=== PATIENT | female | born 1990 | race Caucasian/White ===

== ENCOUNTER 2018-07-08 16:47 | Emergency (ER) | payer SELFPAY ==
[~2018-07-08] VITALS: Ht 154.9 cm; Wt 65.8 kg
[~2018-07-08 16:47] MED LIST: HYDR-3720 PO
--- OUTSIDE RECORDS SUMMARY | 2018-07-08 17:11 | XMS REPORT | Continuity of Care Document ---
Author Author [facility] Organization [facility] Address Unknown Phone Unavailable Allergies There is no data. Medications There is no data. Problems There is no data. Procedures There is no data. Results There is no data. Encounters ACCT No. Visit Date/Time Discharge Status Pt. Type Provider Facility Loc./Unit Complaint [id number] 01/23/2014 09:11:00 01/23/2014 15:00:00 DIS Outpatient [id number] 01/17/2014 16:50:00 01/17/2014 23:59:59 CLS Outpatient
[2018-07-08] MEDS ORDERED: HYDROcodone/APAP 7.5 MG/325 MG (LORTAB, LORCET PLUS) TABLET PO ONE (18:30)
--- NOTE | 2018-07-08 18:34 | ED Lower Extremity ---
General Chief Complaint: Lower Extremity Stated Complaint: L LEG/KNEE INJ Nursing Triage Note: ARRIVED VIA WC TO ROOM 07. 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 UNABLE TO BEAR WT OR MOVE KNEE WITHOUT SEVERE PAIN. Nursing Sepsis Screen: No Definite Risk Source: patient, family (mother) Exam Limitations: no limitations History of Present Illness Date Seen by Provider: Jul 08, 2018 Time Seen by Provider: 18:00 Initial Comments Patient is a 28-year-old female who presents to the emergency room with complaints of left knee pain. She reports that she was bending down to talk to a child when she went to stand up and she felt a sharp pain in the posterior area of the knee. She describes the pain as "like something twisting to the point where it tears". She is unable to bear weight or move the knee without pain. Onset: this evening Pain/Injury Location: left knee Modifying Factors: Worse With Movement Allergies and Home Medications Allergies Coded Allergies: No Known Drug Allergies (Unverified , 01/23/14) Home Medications Hydrocodone Bit/Acetaminophen 1 Each Tablet, 1-2 TAB PO Q3H PRN for PAIN Prescribed by: MARLEN GRIFFITHS on 01/23/14 1423 Hydrocodone Bit/Acetaminophen 1 Tab Tab, 1 EACH PO Q4-6HR PRN for PAIN-MODERATE Prescribed by: JEFFREY DE LA CRUZ on 07/08/18 1918 Patient Home Medication List Home Medication List Reviewed: Yes Review of Systems Constitutional: no symptoms reported, see HPI Musculoskeletal: see HPI, joint pain (left knee pain) All Other Systems Reviewed Negative Unless Noted: Yes Past Kkktoyk-Dkmhra-Vhpvqi Hx Past Med/Social Hx: Reviewed Nursing Past Med/Soc Hx Patient Social History Alcohol Use: Denies Use Recreational Drug Use: No Smoking Status: Never a Smoker Recent Foreign Travel: No Contact w/Someone Who Travel: No Recent Infectious Disease Expo: No Past Medical History Surgeries: Yes (D&C) Respiratory: No Cardiac: No Neurological: No : No Reproductive Disorders: Yes (BLIGHTED OVUM) Sexually Transmitted Disease: No Gastrointestinal: No Musculoskeletal: No Endocrine: No Integumentary: No Blood Disorders: No Family Medical History Reviewed Nursing Family Hx Physical Exam Vital Signs Vital Signs - First Documented 07/08/18 18:09 Temp 98.9 Pulse 103 Resp 16 B/P (MAP) 148/99 (115) Pulse Ox 99 O2 Delivery Room Air Capillary Refill : Less Than 3 Seconds Height, Weight, BMI Height: 5'1.00" Weight: 145lbs. oz. 65.502325rs; BMI Method:Stated General Appearance: WD/WN, no apparent distress Cardiovascular: normal peripheral pulses, regular rate, rhythm, no edema, no gallop, no JVD, no murmur Respiratory: chest non-tender, lungs clear, normal breath sounds, no respiratory distress, no accessory muscle use Knees: right knee non-tender, right knee normal inspection; left knee normal range of motion (pain with ROM ); right knee no evidence of injury; left knee pain, left knee soft tissue tenderness Neurologic/Tendon: normal sensation, normal motor functions, normal tendon functions, responds to pain, no evidence tendon injury Neurologic/Psychiatric: alert, normal mood/affect, oriented x 3 Skin: normal color, warm/dry normal distal pulses and capillary refill Progress/Results/Core Measures Results/Orders My Orders Orders - JEFFREY DE LA CRUZ Knee, Left, 3 Views (07/08/18 18:14) Hydrocodone/Apap 7.5/325 Tab (Lortab 7. (07/08/18 18:30) Rx-Hydrocodone/Apap 5-325 Mg (Rx-Vicodin (07/08/18 19:45) Medications Given in ED Vital Signs/I&O 18 1218 18:09 19:56 Temp 98.9 98.9 Pulse 103 93 Resp 16 16 B/P (MAP) 148/99 (115) 121/76 (91) Pulse Ox 99 99 O2 Delivery Room Air Room Air Blood Pressure Mean: 115 Progress Progress Note : Time: 19:16 Progress Note I have seen and evaluated the patient. I have informed her imaging studies. She agrees with plan of care. Return precautions were given. See discharge note. Diagnostic Imaging Diagonstic Imaging: Xray Plain Films/CT/US/NM/MRI: knee Comments NAME: ARACELI HILL [facility] REC#: [id number] PHYSICIAN: JEFFREY DE LA CRUZ [facility] CC: JEFFREY DE LA CRUZ; LAUREN GUTIERREZ MD Page 1 of 1 RADIOLOGY REPORT VIA [facility], [facility]. [place], [place] CC: JEFFREY DE LA CRUZ; LAUREN GUTIERREZ MD Page 1 of 1 RADIOLOGY REPORT NAME: ARACELI HILL [facility] REC#: [id number] PT STATUS: REG ER : 1990 PHYSICIAN: JEFFREY DE LA CRUZ ADMIT DATE: 07/08/18/ER Signed Date of Exam: 07/08/18 KNEE, LEFT, 3 VIEWS INDICATION: Left knee pain. EXAMINATION: AP, oblique and lateral views of the left knee were obtained. FINDINGS: No fracture or acute bony abnormality is seen. Joint spaces are unremarkable. There is no overt joint effusion. IMPRESSION: Negative left knee. Dictated by: Dictated on workstation # [id number] Dict: 07/08/181848 Trans: 07/08/181958 Interpreted by: LAUREN GUTIERREZ MD Electronically signed by: LAUREN GUTIERREZ MD 07/08/181958 Reviewed: Reviewed by Me Departure Impression Primary Impression: Knee pain Qualified Codes: M25.562 - Pain in left knee Disposition: HOME, SELF-CARE Condition: Stable/Unchanged Departure-Patient Inst. Decision time for Depature: 19:16 Referrals: WINIFRED SCHUMACHER,LOCAL PHYSICIAN (PCP) Primary Care Physician ROSA RICCI MD Patient Instructions: Knee Pain Add. Discharge Instructions: Take medication as directed. You may use additional ibuprofen and Tylenol as needed for pain relief. Ice to the sore areas at 20 minute intervals. Wear the knee immobilizer at all times and use the crutches to ambulate. Follow-up with [facility] or to food within 1 week for recheck. Call first thing Tuesday morning for an appointment time. Return back to the emergency room for any worsening symptoms or concerns as needed. All discharge instructions reviewed with patient and/or family. Voiced understanding. Scripts Hydrocodone Bit/Acetaminophen (Hydrocodone/Acetaminophen 5/325mg Tablet) 1 Tab Tab 1 EACH PO Q4-6HR PRN for PAIN-MODERATE MDD 10, #14 TAB Prov: JEFFREY DE LA CRUZ 07/08/18 JEFFREY DE LA CRUZ Jul 08, 2018 18:34
--- NOTE | 2018-07-08 18:51 | Diagnostic Imaging Report ---
INDICATION: Left knee pain. EXAMINATION: AP, oblique and lateral views of the left knee were obtained. FINDINGS: No fracture or acute bony abnormality is seen. Joint spaces are unremarkable. There is no overt joint effusion. IMPRESSION: Negative left knee. Dictated by: Dictated on workstation # [id number]
[2018-07-08] MEDS ORDERED: ACHD5005 PO (19:18)
[2018-07-08] MEDS ORDERED: RX-HYDROCODONE/APAP 5/325 MG #4 TAB PK PO PRN (19:45)
[2018-07-08 19:56] VITALS: BP 121/76
== END 2018-07-08 19:56 | disposition home or self-care (01) ==
LOC: EDUNIT# 16:47 → ER 16:48
DX: M25.562 Pain in left knee (principal); Z98.890 Other specified postprocedural states; X50.1XXA Overexertion from prolonged static or awkward postures, initial encounter
CPT/HCPCS: 73562

== ENCOUNTER → 2018-07-12 | Outpatient (CLI) | payer OTHER ==
[~2018-07-12] MED LIST changes: +ACHD5005 PO
--- NOTE | 2018-07-12 14:20 | Diagnostic Imaging Report ---
PROCEDURE: MRI left joint lower extremity without contrast. TECHNIQUE: Multiplanar, multisequence non contrast-enhanced MRI of the left lower extremity was accomplished. INDICATION: Injury on 07/08/2018, with posterior and lateral left knee pain and swelling and instability. COMPARISON: Radiographs from 07/08/2018. FINDINGS: No acute fracture or dislocation is seen in the left knee. Alignment appears normal. There is a moderate left knee joint effusion. The articular cartilage in the patellofemoral compartment appears intact. No full-thickness defects are seen in the articular cartilage of the medial and lateral compartments as well. The medial meniscus is intact. There is a bucket-handle tear of the lateral meniscus with the posterior horn and body flipped anteriorly. The anterior and posterior cruciate ligaments are intact. The medial collateral ligament is intact. There is edema about the fibular collateral ligament proper, which may be reactive to the meniscal tear although a low-grade sprain is not excluded. The remainder of the lateral collateral ligamentous complex appears normal. The extensor mechanism is intact. The medial and lateral retinacula appear intact. There is moderate deep soft tissue edema posteriorly and laterally. Soft tissues are otherwise unremarkable. IMPRESSION: 1. Bucket-handle tear of the left knee lateral meniscus with the posterior horn and body flipped anteriorly. 2. Edema about the fibular collateral ligament may be due to low-grade sprain or reactive to the meniscal injury. 3. Moderate left knee joint effusion. Dictated by: Dictated on workstation # [id number]
== END ==
LOC: RAD 12:19
PROVIDERS: ATTEND Nurse Practitioner Primary Care
DX: S83.252A Bucket-handle tear of lateral meniscus, current injury, left knee, initial encounter (principal)
CPT/HCPCS: 73721

== ENCOUNTER → 2019-07-10 | Outpatient (CLI) | payer MEDICAID ==
[~2019-07-10] MED LIST changes: +CETI10CA PO; +DOCU100C37 PO; +IBUP-1780 PO; +OXYC1TAB87 PO; +PNV11TAB5 PO
== END ==
LOC: LABNPT 16:15
PROVIDERS: ATTEND Obstetrics & Gynecology
DX: O28.8 Other abnormal findings on antenatal screening of mother (principal); Z3A.00 Weeks of gestation of pregnancy not specified
CPT/HCPCS: 82570; 84156

== ENCOUNTER 2019-07-17 17:37 | Inpatient (IN) | payer MEDICAID ==
[~2019-07-17] VITALS: Ht 157.5 cm; Wt 83.8 kg
[~2019-07-17 17:37] MED LIST changes: -CETI10CA PO; -PNV11TAB5 PO
[2019-07-17 17:50] VITALS: BP 140/88
[2019-07-17] MEDS ORDERED: FAMOTIDINE 20 MG (PEPCID) TABLET PO PRN (18:15)
[2019-07-17] MEDS ORDERED: CALCIUM CARBONATE 500 MG (TUMS) TAB.CHEW PO PRN (18:15)
--- NOTE | 2019-07-17 18:22 | History & Physical ---
History and Physical Date Seen by Provider: Jul 17, 2019 Time Seen by Provider: 18:17 This patient is a 29-year-old A1 white female early at 35-6/7 weeks gestation admitted for preeclampsia. Seen in my clinic on this date found to have a urine protein urine protein creatinine ratio was returned was over 0.4 she also has demonstrated progressive anasarca, she is hyperreflexic with 2 beats of clonus, does deny headaches or nausea or vomiting. She denies Rupture membranes or bleeding. She denies contractions. A GBS culture was obtained in my clinic on this date Allergies are none Medications are vitamins Medical social and surgical histories are per the antepartum record HEENT exam is normal Neck is supple no lymphadenopathy no thyromegaly Abdomen is gravid soft nontender nondistended Extremities show no clubbing or cyanosis. There is no Homans sign. DTRs are 3+ to 4 over 4 globally Pelvic exam in my clinic showed a cervix 2 cm dilated 5070 percent effaced -1 to -2 station vertex presentation with a soft midplane cx Lab work obtained in my clinic showed a normal platelet count and normal LDH was normal uric acid normal liver enzymes normal hemoglobin Assessment and plan 35-6/7 weeks' gestation with preeclampsia. She will be monitored and managed inpatient until she obtains 37 weeks gestation at which time we would effect delivery likely through induction of labor or likelihood and risk for a delivery as elevated due to the fact that she has preeclampsia. 35-6/7 weeks' gestation with preeclampsia Allergies and Home Medications Allergies Coded Allergies: No Known Drug Allergies (Unverified , 01/23/14) Home Medications Hydrocodone Bit/Acetaminophen 1 Each Tablet, 1-2 TAB PO Q3H PRN for PAIN Prescribed by: MARLEN GRIFFITHS on 01/23/14 1423 Hydrocodone Bit/Acetaminophen 1 Tab Tab, 1 EACH PO Q4-6HR PRN for PAIN-MODERATE Prescribed by: JEFFREY DE LA CRUZ on 07/08/18 1918 Patient Home Medication List Home Medication List Reviewed: Yes MARLEN MEZA MD Jul 17, 2019 18:22 POS
[2019-07-17] MEDS ORDERED: D5 LR IV SOLUTION 1,000 ML IV ONE (18:36)
[2019-07-17] MEDS: D5 LR IV SOLUTION 1,000 ML IV SCH (18:44)
[2019-07-17] MEDS ORDERED: ACETAMINOPHEN 500 MG TAB (TYLENOL) PO PRN (18:45)
[2019-07-17 18:53] VITALS: BP 140/88
[2019-07-17 19:00] VITALS: BP 126/79
[2019-07-17] MEDS ORDERED: PNV11TAB5 PO (19:26)
[2019-07-17] MEDS ORDERED: CETI10CA PO (19:26)
[2019-07-17 21:00] VITALS: BP 128/80
[2019-07-18] VITALS (8 sets, daily range): BP systolic 102–128; BP diastolic 64–85
--- NOTE | 2019-07-18 07:42 | Progress Note ---
Standard Progress Note Progress Notes/Assess & Plan Date Seen by a Provider: Jul 18, 2019 Time Seen by a Provider: 07:39 Progress/Assessment & Plan Patient is without complaint. She denies rupture membranes or bleeding. She denies headache. Patient does feel baby moving and has occasional contractions and pressure. Vital Signs Date Time Temp Pulse Resp B/P (MAP) Pulse Ox O2 Delivery O2 Flow Rate FiO2 07/18/19 06:13 36.2 92 18 128/85 (99) Room Air 07/18/19 00:59 36.8 85 18 102/64 (77) 99 07/17/19 21:00 37.1 101 18 128/80 (96) 100 Room Air 07/17/19 19:00 90 18 126/79 (95) Room Air 07/17/19 18:53 37.2 101 18 98 Room Air 07/17/19 17:50 37.2 101 18 140/88 (105) 98 Room Air Blood pressures are somewhat labile but decreased when she is at bed rest The abdomen is gravid soft nontender nondistended Extremities show no clubbing cyanosis. There is no Homans sign. Assessment and plan hospital day 2 at 35 and 6/7 weeks' gestation with preeclampsia. Plan is for inpatient monitoring with delivery for development of severe preeclampsia or at the attainment of 37 weeks gestation whichever comes first. Ob ultrasound is pending today MARLEN MEAZ MD Jul 18, 2019 07:42 POS
--- NOTE | 2019-07-18 09:18 | Diagnostic Imaging Report ---
INDICATION: Preeclampsia. TECHNIQUE: Multiple real-time grayscale images were obtained over the gravid uterus. COMPARISON: None. FINDINGS: There is a single living intrauterine in cephalic presentation. Placenta is fundal. No previa. Biopsy correlation for gestational age of 37 weeks 3 days. There is normal volume of amniotic fluid. Heart rate is 147 bpm and regular. Biometrical measurements are as follows: Biparietal 9.37 cm, age 38 weeks 1 days. Head circumference 33.79 cm, age 38 weeks 6 days. Abdominal circumference 32.46 cm, age 36 weeks 3 days. Femur length 6.99 cm, age 35 weeks 6 days. Sonographic estimate age: 37 weeks 3 days. Sonographic estimated date of delivery: 08/05/19. Estimated Weight: 3007 gm (+/- 439 gm). LMP percentile: 70%. heart rate: 147 beats per minute. number: 1 of 1. IMPRESSION: Single living intrauterine with sonographically estimated gestational age of 37 weeks 3 days and estimated date of confinement is August 05, 2019. Dictated by: Dictated on workstation # [id number]
[2019-07-18] MEDS: D5 LR IV SOLUTION 1,000 ML IV SCH (12:53)
[2019-07-19] VITALS (8 sets, daily range): BP systolic 123–136; BP diastolic 60–87
--- NOTE | 2019-07-19 07:46 | Progress Note ---
Standard Progress Note Progress Notes/Assess & Plan Date Seen by a Provider: Jul 19, 2019 Time Seen by a Provider: 07:44 Progress/Assessment & Plan Patient is without complaint. She denies rupture membranes or bleeding. She denies headache. Patient does feel baby moving and has occasional contractions and pressure. Vital Signs Date Time Temp Pulse Resp B/P (MAP) Pulse Ox O2 Delivery O2 Flow Rate FiO2 07/18/19 06:13 36.2 92 18 128/85 (99) Room Air 07/18/19 00:59 36.8 85 18 102/64 (77) 99 07/17/19 21:00 37.1 101 18 128/80 (96) 100 Room Air 07/17/19 19:00 90 18 126/79 (95) Room Air 07/17/19 18:53 37.2 101 18 98 Room Air 07/17/19 17:50 37.2 101 18 140/88 (105) 98 Room Air Blood pressures are somewhat labile but decreased when she is at bed rest The abdomen is gravid soft nontender nondistended Extremities show no clubbing cyanosis. There is no Homans sign. Assessment and plan hospital day 2 at 35 and 6/7 weeks' gestation with preeclampsia. Plan is for inpatient monitoring with delivery for development of severe preeclampsia or at the attainment of 37 weeks gestation whichever comes first. Ob ultrasound is pending today July 19, 2019 Patient is without complaint. She is ambulating, voiding, tolerating oral intake Vital Signs Date Time Temp Pulse Resp B/P (MAP) Pulse Ox O2 Delivery O2 Flow Rate FiO2 07/19/19 04:40 36.9 89 16 126/60 (82) 97 07/19/19 00:36 89 18 136/87 07/19/19 00:36 37.0 96 18 136/87 (103) 100 Room Air 07/18/19 20:30 36.6 98 18 123/72 (89) 100 Room Air 07/18/19 16:30 36.7 85 18 115/70 (85) 100 Room Air 07/18/19 14:19 89 18 122/72 07/18/19 14:17 89 18 122/72 (89) 98 Room Air 07/18/19 12:00 36.6 80 18 126/84 (98) 100 Room Air 07/18/19 08:00 37.0 98 18 128/72 (90) 98 Room Air I & O 07/19/19 07:00 Intake Total 1000 ml Balance 1000 ml Vital signs are stable. Patient is afebrile. Blood pressures are acceptable. The abdomen is gravid soft and nontender Extremities show no clubbing or cyanosis Pelvic exam is deferred Assessment and plan hospital day 2 now at 36 weeks gestation with preeclampsia - to continue observation with blood pressure monitoring until 37 weeks gestation and then effect delivery MARLEN MEZA MD Jul 19, 2019 07:46 POS
[2019-07-19] MEDS: D5 LR IV SOLUTION 1,000 ML IV SCH (09:02)
[2019-07-20] VITALS (8 sets, daily range): BP systolic 114–127; BP diastolic 56–81
[2019-07-20] MEDS: D5 LR IV SOLUTION 1,000 ML IV SCH ×2 (03:59→23:07)
--- NOTE | 2019-07-20 08:01 | Progress Note ---
Standard Progress Note Progress Notes/Assess & Plan Date Seen by a Provider: Jul 20, 2019 Time Seen by a Provider: 07:59 Progress/Assessment & Plan Patient is without complaint. She denies rupture membranes or bleeding. She denies headache. Patient does feel baby moving and has occasional contractions and pressure. Vital Signs Date Time Temp Pulse Resp B/P (MAP) Pulse Ox O2 Delivery O2 Flow Rate FiO2 07/18/19 06:13 36.2 92 18 128/85 (99) Room Air 07/18/19 00:59 36.8 85 18 102/64 (77) 99 07/17/19 21:00 37.1 101 18 128/80 (96) 100 Room Air 07/17/19 19:00 90 18 126/79 (95) Room Air 07/17/19 18:53 37.2 101 18 98 Room Air 07/17/19 17:50 37.2 101 18 140/88 (105) 98 Room Air Blood pressures are somewhat labile but decreased when she is at bed rest The abdomen is gravid soft nontender nondistended Extremities show no clubbing cyanosis. There is no Homans sign. Assessment and plan hospital day 2 at 35 and 6/7 weeks' gestation with preeclampsia. Plan is for inpatient monitoring with delivery for development of severe preeclampsia or at the attainment of 37 weeks gestation whichever comes first. Ob ultrasound is pending today July 19, 2019 Patient is without complaint. She is ambulating, voiding, tolerating oral intake Vital Signs Date Time Temp Pulse Resp B/P (MAP) Pulse Ox O2 Delivery O2 Flow Rate FiO2 07/19/19 04:40 36.9 89 16 126/60 (82) 97 07/19/19 00:36 89 18 136/87 07/19/19 00:36 37.0 96 18 136/87 (103) 100 Room Air 07/18/19 20:30 36.6 98 18 123/72 (89) 100 Room Air 07/18/19 16:30 36.7 85 18 115/70 (85) 100 Room Air 07/18/19 14:19 89 18 122/72 07/18/19 14:17 89 18 122/72 (89) 98 Room Air 07/18/19 12:00 36.6 80 18 126/84 (98) 100 Room Air 07/18/19 08:00 37.0 98 18 128/72 (90) 98 Room Air I & O 07/19/19 07:00 Intake Total 1000 ml Balance 1000 ml Vital signs are stable. Patient is afebrile. Blood pressures are acceptable. The abdomen is gravid soft and nontender Extremities show no clubbing or cyanosis Pelvic exam is deferred Assessment and plan hospital day 2 now at 36 weeks gestation with preeclampsia - to continue observation with blood pressure monitoring until 37 weeks gestation and then effect delivery July 20 2019 Patient without complaint. She is ambulating, tolerating oral intake well denies headache, denies shortness of breath, denies nausea vomiting, Vital Signs Date Time Temp Pulse Resp B/P (MAP) Pulse Ox O2 Delivery O2 Flow Rate FiO2 07/20/19 04:05 36.2 77 18 114/56 (75) 99 Room Air 07/20/19 02:45 99 16 123/67 07/19/19 23:06 36.4 99 18 123/67 (85) 96 Room Air 07/19/19 19:41 36.4 98 18 127/69 (88) 97 Room Air 07/19/19 15:19 36.7 109 18 125/76 (92) 100 Room Air 07/19/19 12:00 36.4 96 16 132/79 (96) 100 Room Air 07/19/19 08:20 87 16 136/82 07/19/19 08:20 100 Room Air I & O 07/20/19 07:00 Intake Total 3300 ml Balance 3300 ml Vital signs are stable. Patient is afebrile Abdomen is benign Streaming show no clubbing or cyanosis is no Homans sign Assessment and plan hospital day number 3 at 36-1/7 weeks gestation with preeclampsia plan is to continue current management MARLEN MEZA MD Jul 20, 2019 08:01 POS
[2019-07-21 02:22] VITALS: BP 118/82
[2019-07-21 07:50] VITALS: BP 124/86
--- NOTE | 2019-07-21 09:17 | Progress Note ---
Standard Progress Note Progress Notes/Assess & Plan Date Seen by a Provider: Jul 21, 2019 Time Seen by a Provider: 09:14 Progress/Assessment & Plan Patient is without complaint. She denies rupture membranes or bleeding. She denies headache. Patient does feel baby moving and has occasional contractions and pressure. Vital Signs Date Time Temp Pulse Resp B/P (MAP) Pulse Ox O2 Delivery O2 Flow Rate FiO2 07/18/19 06:13 36.2 92 18 128/85 (99) Room Air 07/18/19 00:59 36.8 85 18 102/64 (77) 99 07/17/19 21:00 37.1 101 18 128/80 (96) 100 Room Air 07/17/19 19:00 90 18 126/79 (95) Room Air 07/17/19 18:53 37.2 101 18 98 Room Air 07/17/19 17:50 37.2 101 18 140/88 (105) 98 Room Air Blood pressures are somewhat labile but decreased when she is at bed rest The abdomen is gravid soft nontender nondistended Extremities show no clubbing cyanosis. There is no Homans sign. Assessment and plan hospital day 2 at 35 and 6/7 weeks' gestation with preeclampsia. Plan is for inpatient monitoring with delivery for development of severe preeclampsia or at the attainment of 37 weeks gestation whichever comes first. Ob ultrasound is pending today July 19, 2019 Patient is without complaint. She is ambulating, voiding, tolerating oral intake Vital Signs Date Time Temp Pulse Resp B/P (MAP) Pulse Ox O2 Delivery O2 Flow Rate FiO2 07/19/19 04:40 36.9 89 16 126/60 (82) 97 07/19/19 00:36 89 18 136/87 07/19/19 00:36 37.0 96 18 136/87 (103) 100 Room Air 07/18/19 20:30 36.6 98 18 123/72 (89) 100 Room Air 07/18/19 16:30 36.7 85 18 115/70 (85) 100 Room Air 07/18/19 14:19 89 18 122/72 07/18/19 14:17 89 18 122/72 (89) 98 Room Air 07/18/19 12:00 36.6 80 18 126/84 (98) 100 Room Air 07/18/19 08:00 37.0 98 18 128/72 (90) 98 Room Air I & O 07/19/19 07:00 Intake Total 1000 ml Balance 1000 ml Vital signs are stable. Patient is afebrile. Blood pressures are acceptable. The abdomen is gravid soft and nontender Extremities show no clubbing or cyanosis Pelvic exam is deferred Assessment and plan hospital day 2 now at 36 weeks gestation with preeclampsia - to continue observation with blood pressure monitoring until 37 weeks gestation and then effect delivery July 20 2019 Patient without complaint. She is ambulating, tolerating oral intake well denies headache, denies shortness of breath, denies nausea vomiting, Vital Signs Date Time Temp Pulse Resp B/P (MAP) Pulse Ox O2 Delivery O2 Flow Rate FiO2 07/20/19 04:05 36.2 77 18 114/56 (75) 99 Room Air 07/20/19 02:45 99 16 123/67 07/19/19 23:06 36.4 99 18 123/67 (85) 96 Room Air 07/19/19 19:41 36.4 98 18 127/69 (88) 97 Room Air 07/19/19 15:19 36.7 109 18 125/76 (92) 100 Room Air 07/19/19 12:00 36.4 96 16 132/79 (96) 100 Room Air 07/19/19 08:20 87 16 136/82 07/19/19 08:20 100 Room Air I & O 07/20/19 07:00 Intake Total 3300 ml Balance 3300 ml Vital signs are stable. Patient is afebrile Abdomen is benign Streaming show no clubbing or cyanosis is no Homans sign Assessment and plan hospital day number 3 at 36-1/7 weeks gestation with preeclampsia plan is to continue current management July 21, 2019 Patient complains of URI symptoms/coryza. She denies rupture membranes or bleeding she has occasional mild intermittent headache. She does feel baby moving and has occasional contractions Vital Signs Date Time Temp Pulse Resp B/P (MAP) Pulse Ox O2 Delivery O2 Flow Rate FiO2 07/21/19 07:50 36.2 92 18 124/86 (99) 100 Room Air 07/21/19 02:22 36.4 77 18 118/82 (94) 98 Room Air 07/20/19 23:10 36.5 86 18 127/77 (94) 98 Room Air 07/20/19 20:20 90 18 125/78 12/13/19 19:30 36.7 90 18 125/78 (94) 99 Room Air 07/20/19 15:30 37.3 93 18 115/66 (82) 99 Room Air 07/20/19 12:35 37.4 105 18 124/81 (95) 99 Room Air I & O 07/21/19 07:00 Intake Total 1000 ml Balance 1000 ml Vital signs are stable. Patient is afebrile. The abdomen is benign. Fundus is nontender Extremities show no clubbing or cyanosis. There is no Homans sign. monitor shows occasional somewhat irregular contractions and a normal heart rate pattern Assessment and plan hospital day number 5 now at 36 and 2/7 weeks' gestation with preeclampsia. Patient's blood pressures have been acceptable with her at relative bedrest. We will continue this management until 37 weeks gestation when the plan is for labor induction with Pitocin MARLEN MEZA MD Jul 21, 2019 09:17 POS
[2019-07-21] MEDS: OSELTAMIVIR 75 MG (TAMIFLU) CAPSULE PO SCH ×2 (10:44→21:04)
[2019-07-21] MEDS: PSEUDOEPHEDRINE HCL 30 MG (SUDAFED) TAB PO PRN ×2 (10:44→16:15)
[2019-07-21 12:00] VITALS: BP 131/79
[2019-07-21 16:12] VITALS: BP 116/77
[2019-07-21] MEDS: D5 LR IV SOLUTION 1,000 ML IV SCH (18:06)
[2019-07-21] MEDS: guaiFENesin (MUCINEX) 600 MG TAB PO SCH (21:04)
[2019-07-21 21:57] VITALS: BP 133/75
[2019-07-22] VITALS (7 sets, daily range): BP systolic 125–138; BP diastolic 74–84
[2019-07-22] MEDS: guaiFENesin (MUCINEX) 600 MG TAB PO SCH ×2 (08:27→20:10)
[2019-07-22] MEDS: OSELTAMIVIR 75 MG (TAMIFLU) CAPSULE PO SCH ×2 (08:27→20:10)
--- NOTE | 2019-07-22 09:12 | Progress Note ---
Standard Progress Note Progress Notes/Assess & Plan Date Seen by a Provider: Jul 22, 2019 Time Seen by a Provider: 09:10 Progress/Assessment & Plan Patient is without complaint. She denies rupture membranes or bleeding. She denies headache. Patient does feel baby moving and has occasional contractions and pressure. Vital Signs Date Time Temp Pulse Resp B/P (MAP) Pulse Ox O2 Delivery O2 Flow Rate FiO2 07/18/19 06:13 36.2 92 18 128/85 (99) Room Air 07/18/19 00:59 36.8 85 18 102/64 (77) 99 07/17/19 21:00 37.1 101 18 128/80 (96) 100 Room Air 07/17/19 19:00 90 18 126/79 (95) Room Air 07/17/19 18:53 37.2 101 18 98 Room Air 07/17/19 17:50 37.2 101 18 140/88 (105) 98 Room Air Blood pressures are somewhat labile but decreased when she is at bed rest The abdomen is gravid soft nontender nondistended Extremities show no clubbing cyanosis. There is no Homans sign. Assessment and plan hospital day 2 at 35 and 6/7 weeks' gestation with preeclampsia. Plan is for inpatient monitoring with delivery for development of severe preeclampsia or at the attainment of 37 weeks gestation whichever comes first. Ob ultrasound is pending today July 19, 2019 Patient is without complaint. She is ambulating, voiding, tolerating oral intake Vital Signs Date Time Temp Pulse Resp B/P (MAP) Pulse Ox O2 Delivery O2 Flow Rate FiO2 07/19/19 04:40 36.9 89 16 126/60 (82) 97 07/19/19 00:36 89 18 136/87 07/19/19 00:36 37.0 96 18 136/87 (103) 100 Room Air 07/18/19 20:30 36.6 98 18 123/72 (89) 100 Room Air 07/18/19 16:30 36.7 85 18 115/70 (85) 100 Room Air 07/18/19 14:19 89 18 122/72 07/18/19 14:17 89 18 122/72 (89) 98 Room Air 07/18/19 12:00 36.6 80 18 126/84 (98) 100 Room Air 07/18/19 08:00 37.0 98 18 128/72 (90) 98 Room Air I & O 07/19/19 07:00 Intake Total 1000 ml Balance 1000 ml Vital signs are stable. Patient is afebrile. Blood pressures are acceptable. The abdomen is gravid soft and nontender Extremities show no clubbing or cyanosis Pelvic exam is deferred Assessment and plan hospital day 2 now at 36 weeks gestation with preeclampsia - to continue observation with blood pressure monitoring until 37 weeks gestation and then effect delivery July 20 2019 Patient without complaint. She is ambulating, tolerating oral intake well denies headache, denies shortness of breath, denies nausea vomiting, Vital Signs Date Time Temp Pulse Resp B/P (MAP) Pulse Ox O2 Delivery O2 Flow Rate FiO2 07/20/19 04:05 36.2 77 18 114/56 (75) 99 Room Air 07/20/19 02:45 99 16 123/67 07/19/19 23:06 36.4 99 18 123/67 (85) 96 Room Air 07/19/19 19:41 36.4 98 18 127/69 (88) 97 Room Air 07/19/19 15:19 36.7 109 18 125/76 (92) 100 Room Air 07/19/19 12:00 36.4 96 16 132/79 (96) 100 Room Air 07/19/19 08:20 87 16 136/82 07/19/19 08:20 100 Room Air I & O 07/20/19 07:00 Intake Total 3300 ml Balance 3300 ml Vital signs are stable. Patient is afebrile Abdomen is benign Streaming show no clubbing or cyanosis is no Homans sign Assessment and plan hospital day number 3 at 36-1/7 weeks gestation with preeclampsia plan is to continue current management July 21, 2019 Patient complains of URI symptoms/coryza. She denies rupture membranes or bleeding she has occasional mild intermittent headache. She does feel baby moving and has occasional contractions Vital Signs Date Time Temp Pulse Resp B/P (MAP) Pulse Ox O2 Delivery O2 Flow Rate FiO2 07/21/19 07:50 36.2 92 18 124/86 (99) 100 Room Air 07/21/19 02:22 36.4 77 18 118/82 (94) 98 Room Air 07/20/19 23:10 36.5 86 18 127/77 (94) 98 Room Air 07/20/19 20:20 90 18 125/78 12/13/19 19:30 36.7 90 18 125/78 (94) 99 Room Air 07/20/19 15:30 37.3 93 18 115/66 (82) 99 Room Air 07/20/19 12:35 37.4 105 18 124/81 (95) 99 Room Air I & O 07/21/19 07:00 Intake Total 1000 ml Balance 1000 ml Vital signs are stable. Patient is afebrile. The abdomen is benign. Fundus is nontender Extremities show no clubbing or cyanosis. There is no Homans sign. monitor shows occasional somewhat irregular contractions and a normal heart rate pattern Assessment and plan hospital day number 5 now at 36 and 2/7 weeks' gestation with preeclampsia. Patient's blood pressures have been acceptable with her at relative bedrest. We will continue this management until 37 weeks gestation when the plan is for labor induction with Pitocin July 22, 2019 This patient is without complaint. Her upper respiratory/viral symptoms have improved somewhat. She denies rupture membranes or bleeding. She does continue to have an occasional contraction. She feels her baby moving. She denies headache, denies chest pain, denies shortness of breath. Vital Signs Date Time Temp Pulse Resp B/P (MAP) Pulse Ox O2 Delivery O2 Flow Rate FiO2 07/22/19 08:28 98 20 138/80 07/22/19 05:52 36.8 93 18 125/84 (98) Room Air 07/22/19 01:20 36.6 86 18 126/82 (97) Room Air 07/21/19 21:57 36.8 81 18 133/75 (94) 100 Room Air 07/21/19 16:12 37.2 94 18 116/77 (90) 100 Room Air 07/21/19 12:00 85 18 131/79 (96) 99 Room Air I & O 07/22/19 07:00 Intake Total 2665 ml Output Total 2450 ml Balance 215 ml Vital signs are stable. Patient is afebrile. Abdomen is gravid soft nontender nondistended. Extremities show no clubbing or cyanosis. There is no Homans sign. There is some pretibial pitting edema that is normal. Assessment and plan hospital day 6 currently at 36-3/7 weeks gestation patient is stable in regard to preeclampsia/blood pressure. We will continue current management with plan for induction of labor at the attainment at 37 weeks. MARLEN MEZA MD Jul 22, 2019 09:12 POS
[2019-07-22] MEDS: D5 LR IV SOLUTION 1,000 ML IV SCH (12:10)
[2019-07-23] VITALS (7 sets, daily range): BP systolic 121–140; BP diastolic 75–85
[2019-07-23] MEDS: D5 LR IV SOLUTION 1,000 ML IV SCH (07:49)
[2019-07-23] MEDS: guaiFENesin (MUCINEX) 600 MG TAB PO SCH ×2 (10:07→21:35)
[2019-07-23] MEDS: OSELTAMIVIR 75 MG (TAMIFLU) CAPSULE PO SCH ×2 (10:08→21:35)
--- NOTE | 2019-07-23 13:19 | Progress Note ---
Standard Progress Note Progress Notes/Assess & Plan Date Seen by a Provider: Jul 23, 2019 Time Seen by a Provider: 13:17 Progress/Assessment & Plan Patient is without complaint. She denies rupture membranes or bleeding. She denies headache. Patient does feel baby moving and has occasional contractions and pressure. Vital Signs Date Time Temp Pulse Resp B/P (MAP) Pulse Ox O2 Delivery O2 Flow Rate FiO2 07/18/19 06:13 36.2 92 18 128/85 (99) Room Air 07/18/19 00:59 36.8 85 18 102/64 (77) 99 07/17/19 21:00 37.1 101 18 128/80 (96) 100 Room Air 07/17/19 19:00 90 18 126/79 (95) Room Air 07/17/19 18:53 37.2 101 18 98 Room Air 07/17/19 17:50 37.2 101 18 140/88 (105) 98 Room Air Blood pressures are somewhat labile but decreased when she is at bed rest The abdomen is gravid soft nontender nondistended Extremities show no clubbing cyanosis. There is no Homans sign. Assessment and plan hospital day 2 at 35 and 6/7 weeks' gestation with preeclampsia. Plan is for inpatient monitoring with delivery for development of severe preeclampsia or at the attainment of 37 weeks gestation whichever comes first. Ob ultrasound is pending today July 19, 2019 Patient is without complaint. She is ambulating, voiding, tolerating oral intake Vital Signs Date Time Temp Pulse Resp B/P (MAP) Pulse Ox O2 Delivery O2 Flow Rate FiO2 07/19/19 04:40 36.9 89 16 126/60 (82) 97 07/19/19 00:36 89 18 136/87 07/19/19 00:36 37.0 96 18 136/87 (103) 100 Room Air 07/18/19 20:30 36.6 98 18 123/72 (89) 100 Room Air 07/18/19 16:30 36.7 85 18 115/70 (85) 100 Room Air 07/18/19 14:19 89 18 122/72 07/18/19 14:17 89 18 122/72 (89) 98 Room Air 07/18/19 12:00 36.6 80 18 126/84 (98) 100 Room Air 07/18/19 08:00 37.0 98 18 128/72 (90) 98 Room Air I & O 07/19/19 07:00 Intake Total 1000 ml Balance 1000 ml Vital signs are stable. Patient is afebrile. Blood pressures are acceptable. The abdomen is gravid soft and nontender Extremities show no clubbing or cyanosis Pelvic exam is deferred Assessment and plan hospital day 2 now at 36 weeks gestation with preeclampsia - to continue observation with blood pressure monitoring until 37 weeks gestation and then effect delivery July 20 2019 Patient without complaint. She is ambulating, tolerating oral intake well denies headache, denies shortness of breath, denies nausea vomiting, Vital Signs Date Time Temp Pulse Resp B/P (MAP) Pulse Ox O2 Delivery O2 Flow Rate FiO2 07/20/19 04:05 36.2 77 18 114/56 (75) 99 Room Air 07/20/19 02:45 99 16 123/67 07/19/19 23:06 36.4 99 18 123/67 (85) 96 Room Air 07/19/19 19:41 36.4 98 18 127/69 (88) 97 Room Air 07/19/19 15:19 36.7 109 18 125/76 (92) 100 Room Air 07/19/19 12:00 36.4 96 16 132/79 (96) 100 Room Air 07/19/19 08:20 87 16 136/82 07/19/19 08:20 100 Room Air I & O 07/20/19 07:00 Intake Total 3300 ml Balance 3300 ml Vital signs are stable. Patient is afebrile Abdomen is benign Streaming show no clubbing or cyanosis is no Homans sign Assessment and plan hospital day number 3 at 36-1/7 weeks gestation with preeclampsia plan is to continue current management July 21, 2019 Patient complains of URI symptoms/coryza. She denies rupture membranes or bleeding she has occasional mild intermittent headache. She does feel baby moving and has occasional contractions Vital Signs Date Time Temp Pulse Resp B/P (MAP) Pulse Ox O2 Delivery O2 Flow Rate FiO2 07/21/19 07:50 36.2 92 18 124/86 (99) 100 Room Air 07/21/19 02:22 36.4 77 18 118/82 (94) 98 Room Air 07/20/19 23:10 36.5 86 18 127/77 (94) 98 Room Air 07/20/19 20:20 90 18 125/78 12/13/19 19:30 36.7 90 18 125/78 (94) 99 Room Air 07/20/19 15:30 37.3 93 18 115/66 (82) 99 Room Air 07/20/19 12:35 37.4 105 18 124/81 (95) 99 Room Air I & O 07/21/19 07:00 Intake Total 1000 ml Balance 1000 ml Vital signs are stable. Patient is afebrile. The abdomen is benign. Fundus is nontender Extremities show no clubbing or cyanosis. There is no Homans sign. monitor shows occasional somewhat irregular contractions and a normal heart rate pattern Assessment and plan hospital day number 5 now at 36 and 2/7 weeks' gestation with preeclampsia. Patient's blood pressures have been acceptable with her at relative bedrest. We will continue this management until 37 weeks gestation when the plan is for labor induction with Pitocin July 22, 2019 This patient is without complaint. Her upper respiratory/viral symptoms have improved somewhat. She denies rupture membranes or bleeding. She does continue to have an occasional contraction. She feels her baby moving. She denies headache, denies chest pain, denies shortness of breath. Vital Signs Date Time Temp Pulse Resp B/P (MAP) Pulse Ox O2 Delivery O2 Flow Rate FiO2 07/22/19 08:28 98 20 138/80 07/22/19 05:52 36.8 93 18 125/84 (98) Room Air 07/22/19 01:20 36.6 86 18 126/82 (97) Room Air 07/21/19 21:57 36.8 81 18 133/75 (94) 100 Room Air 07/21/19 16:12 37.2 94 18 116/77 (90) 100 Room Air 07/21/19 12:00 85 18 131/79 (96) 99 Room Air I & O 07/22/19 07:00 Intake Total 2665 ml Output Total 2450 ml Balance 215 ml Vital signs are stable. Patient is afebrile. Abdomen is gravid soft nontender nondistended. Extremities show no clubbing or cyanosis. There is no Homans sign. There is some pretibial pitting edema that is normal. Assessment and plan hospital day 6 currently at 36-3/7 weeks gestation patient is stable in regard to preeclampsia/blood pressure. We will continue current management with plan for induction of labor at the attainment at 37 weeks. July 23, 2019 This patient is without complaint. Vital Signs Date Time Temp Pulse Resp B/P (MAP) Pulse Ox O2 Delivery O2 Flow Rate FiO2 07/23/19 12:00 37.0 98 18 131/80 (97) 100 Room Air 07/23/19 09:55 37.2 101 18 137/80 (99) 100 Room Air 07/23/19 03:34 36.3 86 18 131/84 (100) Room Air 07/23/19 00:07 36.3 78 18 134/85 (101) Room Air 07/22/19 21:25 91 18 126/77 07/22/19 19:20 36.8 91 18 126/77 (93) Room Air 07/22/19 14:40 36.7 95 18 133/74 (93) Room Air 07/22/19 14:00 101 18 126/75 (92) Room Air I & O 07/23/19 07:00 Intake Total 500 ml Output Total 1700 ml Balance -1200 ml Blood pressures are stable/AFB Physical exam is unchanged and benign Assessment and plan hospital day 7 at 36+ weeks gestation with mild preeclampsia / plan is to continue management MARLEN MEZA MD Jul 23, 2019 13:19 POS
[2019-07-24] VITALS (9 sets, daily range): BP systolic 110–138; BP diastolic 0–87
[2019-07-24] MEDS: D5 LR IV SOLUTION 1,000 ML IV SCH ×2 (04:02→23:50)
--- NOTE | 2019-07-24 07:55 | Progress Note ---
Standard Progress Note Progress Notes/Assess & Plan Date Seen by a Provider: Jul 24, 2019 Time Seen by a Provider: 07:53 Progress/Assessment & Plan Patient is without complaint. She denies rupture membranes or bleeding. She denies headache. Patient does feel baby moving and has occasional contractions and pressure. Vital Signs Date Time Temp Pulse Resp B/P (MAP) Pulse Ox O2 Delivery O2 Flow Rate FiO2 07/18/19 06:13 36.2 92 18 128/85 (99) Room Air 07/18/19 00:59 36.8 85 18 102/64 (77) 99 07/17/19 21:00 37.1 101 18 128/80 (96) 100 Room Air 07/17/19 19:00 90 18 126/79 (95) Room Air 07/17/19 18:53 37.2 101 18 98 Room Air 07/17/19 17:50 37.2 101 18 140/88 (105) 98 Room Air Blood pressures are somewhat labile but decreased when she is at bed rest The abdomen is gravid soft nontender nondistended Extremities show no clubbing cyanosis. There is no Homans sign. Assessment and plan hospital day 2 at 35 and 6/7 weeks' gestation with preeclampsia. Plan is for inpatient monitoring with delivery for development of severe preeclampsia or at the attainment of 37 weeks gestation whichever comes first. Ob ultrasound is pending today July 19, 2019 Patient is without complaint. She is ambulating, voiding, tolerating oral intake Vital Signs Date Time Temp Pulse Resp B/P (MAP) Pulse Ox O2 Delivery O2 Flow Rate FiO2 07/19/19 04:40 36.9 89 16 126/60 (82) 97 07/19/19 00:36 89 18 136/87 07/19/19 00:36 37.0 96 18 136/87 (103) 100 Room Air 07/18/19 20:30 36.6 98 18 123/72 (89) 100 Room Air 07/18/19 16:30 36.7 85 18 115/70 (85) 100 Room Air 07/18/19 14:19 89 18 122/72 07/18/19 14:17 89 18 122/72 (89) 98 Room Air 07/18/19 12:00 36.6 80 18 126/84 (98) 100 Room Air 07/18/19 08:00 37.0 98 18 128/72 (90) 98 Room Air I & O 07/19/19 07:00 Intake Total 1000 ml Balance 1000 ml Vital signs are stable. Patient is afebrile. Blood pressures are acceptable. The abdomen is gravid soft and nontender Extremities show no clubbing or cyanosis Pelvic exam is deferred Assessment and plan hospital day 2 now at 36 weeks gestation with preeclampsia - to continue observation with blood pressure monitoring until 37 weeks gestation and then effect delivery July 20 2019 Patient without complaint. She is ambulating, tolerating oral intake well denies headache, denies shortness of breath, denies nausea vomiting, Vital Signs Date Time Temp Pulse Resp B/P (MAP) Pulse Ox O2 Delivery O2 Flow Rate FiO2 07/20/19 04:05 36.2 77 18 114/56 (75) 99 Room Air 07/20/19 02:45 99 16 123/67 07/19/19 23:06 36.4 99 18 123/67 (85) 96 Room Air 07/19/19 19:41 36.4 98 18 127/69 (88) 97 Room Air 07/19/19 15:19 36.7 109 18 125/76 (92) 100 Room Air 07/19/19 12:00 36.4 96 16 132/79 (96) 100 Room Air 07/19/19 08:20 87 16 136/82 07/19/19 08:20 100 Room Air I & O 07/20/19 07:00 Intake Total 3300 ml Balance 3300 ml Vital signs are stable. Patient is afebrile Abdomen is benign Streaming show no clubbing or cyanosis is no Homans sign Assessment and plan hospital day number 3 at 36-1/7 weeks gestation with preeclampsia plan is to continue current management July 21, 2019 Patient complains of URI symptoms/coryza. She denies rupture membranes or bleeding she has occasional mild intermittent headache. She does feel baby moving and has occasional contractions Vital Signs Date Time Temp Pulse Resp B/P (MAP) Pulse Ox O2 Delivery O2 Flow Rate FiO2 07/21/19 07:50 36.2 92 18 124/86 (99) 100 Room Air 07/21/19 02:22 36.4 77 18 118/82 (94) 98 Room Air 07/20/19 23:10 36.5 86 18 127/77 (94) 98 Room Air 07/20/19 20:20 90 18 125/78 12/13/19 19:30 36.7 90 18 125/78 (94) 99 Room Air 07/20/19 15:30 37.3 93 18 115/66 (82) 99 Room Air 07/20/19 12:35 37.4 105 18 124/81 (95) 99 Room Air I & O 07/21/19 07:00 Intake Total 1000 ml Balance 1000 ml Vital signs are stable. Patient is afebrile. The abdomen is benign. Fundus is nontender Extremities show no clubbing or cyanosis. There is no Homans sign. monitor shows occasional somewhat irregular contractions and a normal heart rate pattern Assessment and plan hospital day number 5 now at 36 and 2/7 weeks' gestation with preeclampsia. Patient's blood pressures have been acceptable with her at relative bedrest. We will continue this management until 37 weeks gestation when the plan is for labor induction with Pitocin July 22, 2019 This patient is without complaint. Her upper respiratory/viral symptoms have improved somewhat. She denies rupture membranes or bleeding. She does continue to have an occasional contraction. She feels her baby moving. She denies headache, denies chest pain, denies shortness of breath. Vital Signs Date Time Temp Pulse Resp B/P (MAP) Pulse Ox O2 Delivery O2 Flow Rate FiO2 07/22/19 08:28 98 20 138/80 07/22/19 05:52 36.8 93 18 125/84 (98) Room Air 07/22/19 01:20 36.6 86 18 126/82 (97) Room Air 07/21/19 21:57 36.8 81 18 133/75 (94) 100 Room Air 07/21/19 16:12 37.2 94 18 116/77 (90) 100 Room Air 07/21/19 12:00 85 18 131/79 (96) 99 Room Air I & O 07/22/19 07:00 Intake Total 2665 ml Output Total 2450 ml Balance 215 ml Vital signs are stable. Patient is afebrile. Abdomen is gravid soft nontender nondistended. Extremities show no clubbing or cyanosis. There is no Homans sign. There is some pretibial pitting edema that is normal. Assessment and plan hospital day 6 currently at 36-3/7 weeks gestation patient is stable in regard to preeclampsia/blood pressure. We will continue current management with plan for induction of labor at the attainment at 37 weeks. July 23, 2019 This patient is without complaint. Vital Signs Date Time Temp Pulse Resp B/P (MAP) Pulse Ox O2 Delivery O2 Flow Rate FiO2 07/23/19 12:00 37.0 98 18 131/80 (97) 100 Room Air 07/23/19 09:55 37.2 101 18 137/80 (99) 100 Room Air 07/23/19 03:34 36.3 86 18 131/84 (100) Room Air 07/23/19 00:07 36.3 78 18 134/85 (101) Room Air 07/22/19 21:25 91 18 126/77 07/22/19 19:20 36.8 91 18 126/77 (93) Room Air 07/22/19 14:40 36.7 95 18 133/74 (93) Room Air 07/22/19 14:00 101 18 126/75 (92) Room Air I & O 07/23/19 07:00 Intake Total 500 ml Output Total 1700 ml Balance -1200 ml Blood pressures are stable/AFB Physical exam is unchanged and benign Assessment and plan hospital day 7 at 36+ weeks gestation with mild preeclampsia / plan is to continue management July 24, 2019 This patient is without complaint. She denies headache, denies shortness breath, denies nausea vomiting. Patient denies contractions. Vital Signs Date Time Temp Pulse Resp B/P (MAP) Pulse Ox O2 Delivery O2 Flow Rate FiO2 07/24/19 05:15 36.7 87 16 110/64 (79) 98 Room Air 07/24/19 01:11 36.5 94 18 113/63 (80) 98 Room Air 07/23/19 21:15 36.6 88 18 121/76 (91) 100 Room Air 07/23/19 16:17 91 18 140/75 07/23/19 16:00 37.0 91 18 140/75 (96) 100 Room Air 07/23/19 12:00 37.0 98 18 131/80 (97) 100 Room Air 07/23/19 09:55 37.2 101 18 137/80 (99) 100 Room Air I & O 07/24/19 07:00 Intake Total 2075 ml Output Total 1050 ml Balance 1025 ml Vital signs are stable. Patient is afebrile. Patient's blood pressures trending of a bit but still acceptable. The abdomen is benign. The fundus is nontender. Extremities show no clubbing cyanosis. There is no Homans sign. DTRs are 4/4 globally Assessment and plan hospital day number 8 the patient that most 36-5/7 weeks gestation. Plan is for induction of labor with Pitocin on when patient is 37 weeks providing her blood pressures and preeclampsia remains stable MARLEN MEZA MD Jul 24, 2019 07:55 POS
[2019-07-24] MEDS: guaiFENesin (MUCINEX) 600 MG TAB PO SCH ×2 (08:47→21:07)
[2019-07-24] MEDS: OSELTAMIVIR 75 MG (TAMIFLU) CAPSULE PO SCH ×2 (08:47→21:07)
[2019-07-24] MEDS ORDERED: ONDANSETRON 4 MG/2 ML (SDV) Z0FRAN ONE (13:14)
[2019-07-24] MEDS ORDERED: ONDANSETRON 4 MG/2 ML (SDV) Z0FRAN IVP ONE ×2 (13:15)
[2019-07-24 14:02] LABS: BASOPHILS # (AUTO) 0.1 10^3/uL (0.0-0.1); BASOPHILS % (AUTO) 1 % (0-10); EOSINOPHILS # (AUTO) 0.3 10^3/uL (0.0-0.3); EOSINOPHILS % (AUTO) 3 % (0-10); HEMATOCRIT 34 % (35-52); HEMOGLOBIN 11.2 G/DL (11.5-16.0); LYMPHOCYTES # (AUTO) 1.6 X 10^3 (1.0-4.0); LYMPHOCYTES % (AUTO) 15 % (12-44); MEAN CORPUSCULAR HEMOGLOBIN 25 PG (25-34); MEAN CORPUSCULAR HGB CONC 33 G/DL (32-36); MEAN CORPUSCULAR VOLUME 77 FL (80-99); MONOCYTES # (AUTO) 0.8 X 10^3 (0.0-1.0); MONOCYTES % (AUTO) 8 % (0-12); NEUTROPHILS # (AUTO) 8.3 X 10^3 (1.8-7.8); NEUTROPHILS % (AUTO) 74 % (42-75); PLATELET COUNT 190 10^3/uL (130-400); RED CELL DISTRIBUTION WIDTH 15.3 % (10.0-14.5); WHITE BLOOD COUNT 11.1 10^3/uL (4.3-11.0)
[2019-07-24 14:19] LABS: ALANINE AMINOTRANSFERASE 13 U/L (0-55); ALBUMIN 3.1 GM/DL (3.2-4.5); ALKALINE PHOSPHATASE 207 U/L (40-136); BILIRUBIN,TOTAL 0.2 MG/DL (0.1-1.0); BUN/CREATININE RATIO 11; CALCIUM 8.7 MG/DL (8.5-10.1); CARBON DIOXIDE 19 MMOL/L (21-32); CHLORIDE 108 MMOL/L (98-107); CREATININE SERUM 0.73 MG/DL (0.60-1.30); GFR ESTIMATED > 60; GLUCOSE 74 MG/DL (70-105); POTASSIUM 3.8 MMOL/L (3.6-5.0); SODIUM 138 MMOL/L (135-145); TOTAL PROTEIN 6.4 GM/DL (6.4-8.2)
[2019-07-24 14:31] LABS: ANISOCYTOSIS SLIGHT; BAND NEUTROPHILS 5 %; BASOPHILS % (MANUAL) 0 %; EOSINOPHILS % (MANUAL) 2 %; LYMPHOCYTES % (MANUAL) 18 %; MICROCYTOSIS SLIGHT; MONOCYTES % (MANUAL) 5 %; MYELOCYTES % 1 %; NEUTROPHILS % (MANUAL) 69 %
[2019-07-25 04:13] VITALS: BP 108/71
[2019-07-25 08:00] VITALS: BP 136/81
--- NOTE | 2019-07-25 10:12 | Progress Note ---
Standard Progress Note Progress Notes/Assess & Plan Date Seen by a Provider: Jul 25, 2019 Time Seen by a Provider: 07:45 Progress/Assessment & Plan Patient is without complaint. She denies rupture membranes or bleeding. She denies headache. Patient does feel baby moving and has occasional contractions and pressure. Vital Signs Date Time Temp Pulse Resp B/P (MAP) Pulse Ox O2 Delivery O2 Flow Rate FiO2 07/18/19 06:13 36.2 92 18 128/85 (99) Room Air 07/18/19 00:59 36.8 85 18 102/64 (77) 99 07/17/19 21:00 37.1 101 18 128/80 (96) 100 Room Air 07/17/19 19:00 90 18 126/79 (95) Room Air 07/17/19 18:53 37.2 101 18 98 Room Air 07/17/19 17:50 37.2 101 18 140/88 (105) 98 Room Air Blood pressures are somewhat labile but decreased when she is at bed rest The abdomen is gravid soft nontender nondistended Extremities show no clubbing cyanosis. There is no Homans sign. Assessment and plan hospital day 2 at 35 and 6/7 weeks' gestation with preeclampsia. Plan is for inpatient monitoring with delivery for development of severe preeclampsia or at the attainment of 37 weeks gestation whichever comes first. Ob ultrasound is pending today July 19, 2019 Patient is without complaint. She is ambulating, voiding, tolerating oral intake Vital Signs Date Time Temp Pulse Resp B/P (MAP) Pulse Ox O2 Delivery O2 Flow Rate FiO2 07/19/19 04:40 36.9 89 16 126/60 (82) 97 07/19/19 00:36 89 18 136/87 07/19/19 00:36 37.0 96 18 136/87 (103) 100 Room Air 07/18/19 20:30 36.6 98 18 123/72 (89) 100 Room Air 07/18/19 16:30 36.7 85 18 115/70 (85) 100 Room Air 07/18/19 14:19 89 18 122/72 07/18/19 14:17 89 18 122/72 (89) 98 Room Air 07/18/19 12:00 36.6 80 18 126/84 (98) 100 Room Air 07/18/19 08:00 37.0 98 18 128/72 (90) 98 Room Air I & O 07/19/19 07:00 Intake Total 1000 ml Balance 1000 ml Vital signs are stable. Patient is afebrile. Blood pressures are acceptable. The abdomen is gravid soft and nontender Extremities show no clubbing or cyanosis Pelvic exam is deferred Assessment and plan hospital day 2 now at 36 weeks gestation with preeclampsia - to continue observation with blood pressure monitoring until 37 weeks gestation and then effect delivery July 20 2019 Patient without complaint. She is ambulating, tolerating oral intake well denies headache, denies shortness of breath, denies nausea vomiting, Vital Signs Date Time Temp Pulse Resp B/P (MAP) Pulse Ox O2 Delivery O2 Flow Rate FiO2 07/20/19 04:05 36.2 77 18 114/56 (75) 99 Room Air 07/20/19 02:45 99 16 123/67 07/19/19 23:06 36.4 99 18 123/67 (85) 96 Room Air 07/19/19 19:41 36.4 98 18 127/69 (88) 97 Room Air 07/19/19 15:19 36.7 109 18 125/76 (92) 100 Room Air 07/19/19 12:00 36.4 96 16 132/79 (96) 100 Room Air 07/19/19 08:20 87 16 136/82 07/19/19 08:20 100 Room Air I & O 07/20/19 07:00 Intake Total 3300 ml Balance 3300 ml Vital signs are stable. Patient is afebrile Abdomen is benign Streaming show no clubbing or cyanosis is no Homans sign Assessment and plan hospital day number 3 at 36-1/7 weeks gestation with preeclampsia plan is to continue current management July 21, 2019 Patient complains of URI symptoms/coryza. She denies rupture membranes or bleeding she has occasional mild intermittent headache. She does feel baby moving and has occasional contractions Vital Signs Date Time Temp Pulse Resp B/P (MAP) Pulse Ox O2 Delivery O2 Flow Rate FiO2 07/21/19 07:50 36.2 92 18 124/86 (99) 100 Room Air 07/21/19 02:22 36.4 77 18 118/82 (94) 98 Room Air 07/20/19 23:10 36.5 86 18 127/77 (94) 98 Room Air 07/20/19 20:20 90 18 125/78 12/13/19 19:30 36.7 90 18 125/78 (94) 99 Room Air 07/20/19 15:30 37.3 93 18 115/66 (82) 99 Room Air 07/20/19 12:35 37.4 105 18 124/81 (95) 99 Room Air I & O 07/21/19 07:00 Intake Total 1000 ml Balance 1000 ml Vital signs are stable. Patient is afebrile. The abdomen is benign. Fundus is nontender Extremities show no clubbing or cyanosis. There is no Homans sign. monitor shows occasional somewhat irregular contractions and a normal heart rate pattern Assessment and plan hospital day number 5 now at 36 and 2/7 weeks' gestation with preeclampsia. Patient's blood pressures have been acceptable with her at relative bedrest. We will continue this management until 37 weeks gestation when the plan is for labor induction with Pitocin July 22, 2019 This patient is without complaint. Her upper respiratory/viral symptoms have improved somewhat. She denies rupture membranes or bleeding. She does continue to have an occasional contraction. She feels her baby moving. She denies headache, denies chest pain, denies shortness of breath. Vital Signs Date Time Temp Pulse Resp B/P (MAP) Pulse Ox O2 Delivery O2 Flow Rate FiO2 07/22/19 08:28 98 20 138/80 07/22/19 05:52 36.8 93 18 125/84 (98) Room Air 07/22/19 01:20 36.6 86 18 126/82 (97) Room Air 07/21/19 21:57 36.8 81 18 133/75 (94) 100 Room Air 07/21/19 16:12 37.2 94 18 116/77 (90) 100 Room Air 07/21/19 12:00 85 18 131/79 (96) 99 Room Air I & O 07/22/19 07:00 Intake Total 2665 ml Output Total 2450 ml Balance 215 ml Vital signs are stable. Patient is afebrile. Abdomen is gravid soft nontender nondistended. Extremities show no clubbing or cyanosis. There is no Homans sign. There is some pretibial pitting edema that is normal. Assessment and plan hospital day 6 currently at 36-3/7 weeks gestation patient is stable in regard to preeclampsia/blood pressure. We will continue current management with plan for induction of labor at the attainment at 37 weeks. July 23, 2019 This patient is without complaint. Vital Signs Date Time Temp Pulse Resp B/P (MAP) Pulse Ox O2 Delivery O2 Flow Rate FiO2 07/23/19 12:00 37.0 98 18 131/80 (97) 100 Room Air 07/23/19 09:55 37.2 101 18 137/80 (99) 100 Room Air 07/23/19 03:34 36.3 86 18 131/84 (100) Room Air 07/23/19 00:07 36.3 78 18 134/85 (101) Room Air 07/22/19 21:25 91 18 126/77 07/22/19 19:20 36.8 91 18 126/77 (93) Room Air 07/22/19 14:40 36.7 95 18 133/74 (93) Room Air 07/22/19 14:00 101 18 126/75 (92) Room Air I & O 07/23/19 07:00 Intake Total 500 ml Output Total 1700 ml Balance -1200 ml Blood pressures are stable/AFB Physical exam is unchanged and benign Assessment and plan hospital day 7 at 36+ weeks gestation with mild preeclampsia / plan is to continue management July 24, 2019 This patient is without complaint. She denies headache, denies shortness breath, denies nausea vomiting. Patient denies contractions. Vital Signs Date Time Temp Pulse Resp B/P (MAP) Pulse Ox O2 Delivery O2 Flow Rate FiO2 07/24/19 05:15 36.7 87 16 110/64 (79) 98 Room Air 07/24/19 01:11 36.5 94 18 113/63 (80) 98 Room Air 07/23/19 21:15 36.6 88 18 121/76 (91) 100 Room Air 07/23/19 16:17 91 18 140/75 07/23/19 16:00 37.0 91 18 140/75 (96) 100 Room Air 07/23/19 12:00 37.0 98 18 131/80 (97) 100 Room Air 07/23/19 09:55 37.2 101 18 137/80 (99) 100 Room Air I & O 07/24/19 07:00 Intake Total 2075 ml Output Total 1050 ml Balance 1025 ml Vital signs are stable. Patient is afebrile. Patient's blood pressures trending of a bit but still acceptable. The abdomen is benign. The fundus is nontender. Extremities show no clubbing cyanosis. There is no Homans sign. DTRs are 4/4 globally Assessment and plan hospital day number 8 the patient that most 36-5/7 weeks gestation. Plan is for induction of labor with Pitocin on when patient is 37 weeks providing her blood pressures and preeclampsia remains stable 07-25-19 Dictation down No c/o - stable Vital Signs Date Time Temp Pulse Resp B/P (MAP) Pulse Ox O2 Delivery O2 Flow Rate FiO2 07/25/19 04:13 36.9 73 18 108/71 (83) 94 Room Air 07/24/19 23:50 36.8 85 18 114/65 (81) Room Air 07/24/19 21:37 /0 07/24/19 21:10 83 18 121/75 (90) Room Air 07/24/19 16:00 36.9 98 18 138/87 (104) 99 Room Air 07/24/19 12:00 37.0 94 18 123/72 (89) 99 Room Air I & O 07/25/19 07:00 Intake Total 2050 ml Output Total 2250 ml Balance -200 ml VSS AFB Abd - benign Ext - benign VE - defer A/P As before - stable with Pre-E Dulce IOL in AM MARLEN MEZA MD Jul 25, 2019 10:12
[2019-07-25] MEDS: OSELTAMIVIR 75 MG (TAMIFLU) CAPSULE PO SCH ×2 (10:19→21:24)
[2019-07-25] MEDS: guaiFENesin (MUCINEX) 600 MG TAB PO SCH ×2 (10:19→21:24)
[2019-07-25 11:25] VITALS: BP 136/81
[2019-07-25 12:00] VITALS: BP 138/79
[2019-07-25 16:00] VITALS: BP 122/75
[2019-07-25] MEDS: D5 LR IV SOLUTION 1,000 ML IV SCH (19:22)
[2019-07-25 21:22] VITALS: BP 125/72
[2019-07-26] VITALS (48 sets, daily range): BP systolic 111–185; BP diastolic 55–110
[2019-07-26] MEDS ORDERED: D5 LR IV SOLUTION 1,000 ML IV SCH (05:07)
[2019-07-26] MEDS ORDERED: OXYTOCIN/NORMAL SALINE 500 ML IV SCH ×2 (05:07→17:03)
[2019-07-26 05:41] LABS: BASOPHILS # (AUTO) 0.1 10^3/uL (0.0-0.1); BASOPHILS % (AUTO) 1 % (0-10); EOSINOPHILS # (AUTO) 0.5 10^3/uL (0.0-0.3); EOSINOPHILS % (AUTO) 4 % (0-10); HEMATOCRIT 31 % (35-52); HEMOGLOBIN 10.2 G/DL (11.5-16.0); LYMPHOCYTES % (AUTO) 18 % (12-44); MEAN CORPUSCULAR HEMOGLOBIN 25 PG (25-34); MEAN CORPUSCULAR HGB CONC 33 G/DL (32-36); MEAN CORPUSCULAR VOLUME 78 FL (80-99); MONOCYTES # (AUTO) 0.8 X 10^3 (0.0-1.0); MONOCYTES % (AUTO) 7 % (0-12); NEUTROPHILS # (AUTO) 7.9 X 10^3 (1.8-7.8); NEUTROPHILS % (AUTO) 70 % (42-75); PLATELET COUNT 150 10^3/uL (130-400); RED CELL DISTRIBUTION WIDTH 15.2 % (10.0-14.5); WHITE BLOOD COUNT 11.2 10^3/uL (4.3-11.0)
--- NOTE | 2019-07-26 08:02 | Progress Note ---
Standard Progress Note Progress Notes/Assess & Plan Date Seen by a Provider: Jul 26, 2019 Time Seen by a Provider: 08:00 Progress/Assessment & Plan Patient is without complaint. She denies rupture membranes or bleeding. She denies headache. Patient does feel baby moving and has occasional contractions and pressure. Vital Signs Date Time Temp Pulse Resp B/P (MAP) Pulse Ox O2 Delivery O2 Flow Rate FiO2 07/18/19 06:13 36.2 92 18 128/85 (99) Room Air 07/18/19 00:59 36.8 85 18 102/64 (77) 99 07/17/19 21:00 37.1 101 18 128/80 (96) 100 Room Air 07/17/19 19:00 90 18 126/79 (95) Room Air 07/17/19 18:53 37.2 101 18 98 Room Air 07/17/19 17:50 37.2 101 18 140/88 (105) 98 Room Air Blood pressures are somewhat labile but decreased when she is at bed rest The abdomen is gravid soft nontender nondistended Extremities show no clubbing cyanosis. There is no Homans sign. Assessment and plan hospital day 2 at 35 and 6/7 weeks' gestation with preeclampsia. Plan is for inpatient monitoring with delivery for development of severe preeclampsia or at the attainment of 37 weeks gestation whichever comes first. Ob ultrasound is pending today July 19, 2019 Patient is without complaint. She is ambulating, voiding, tolerating oral intake Vital Signs Date Time Temp Pulse Resp B/P (MAP) Pulse Ox O2 Delivery O2 Flow Rate FiO2 07/19/19 04:40 36.9 89 16 126/60 (82) 97 07/19/19 00:36 89 18 136/87 07/19/19 00:36 37.0 96 18 136/87 (103) 100 Room Air 07/18/19 20:30 36.6 98 18 123/72 (89) 100 Room Air 07/18/19 16:30 36.7 85 18 115/70 (85) 100 Room Air 07/18/19 14:19 89 18 122/72 07/18/19 14:17 89 18 122/72 (89) 98 Room Air 07/18/19 12:00 36.6 80 18 126/84 (98) 100 Room Air 07/18/19 08:00 37.0 98 18 128/72 (90) 98 Room Air I & O 07/19/19 07:00 Intake Total 1000 ml Balance 1000 ml Vital signs are stable. Patient is afebrile. Blood pressures are acceptable. The abdomen is gravid soft and nontender Extremities show no clubbing or cyanosis Pelvic exam is deferred Assessment and plan hospital day 2 now at 36 weeks gestation with preeclampsia - to continue observation with blood pressure monitoring until 37 weeks gestation and then effect delivery July 20 2019 Patient without complaint. She is ambulating, tolerating oral intake well denies headache, denies shortness of breath, denies nausea vomiting, Vital Signs Date Time Temp Pulse Resp B/P (MAP) Pulse Ox O2 Delivery O2 Flow Rate FiO2 07/20/19 04:05 36.2 77 18 114/56 (75) 99 Room Air 07/20/19 02:45 99 16 123/67 07/19/19 23:06 36.4 99 18 123/67 (85) 96 Room Air 07/19/19 19:41 36.4 98 18 127/69 (88) 97 Room Air 07/19/19 15:19 36.7 109 18 125/76 (92) 100 Room Air 07/19/19 12:00 36.4 96 16 132/79 (96) 100 Room Air 07/19/19 08:20 87 16 136/82 07/19/19 08:20 100 Room Air I & O 07/20/19 07:00 Intake Total 3300 ml Balance 3300 ml Vital signs are stable. Patient is afebrile Abdomen is benign Streaming show no clubbing or cyanosis is no Homans sign Assessment and plan hospital day number 3 at 36-1/7 weeks gestation with preeclampsia plan is to continue current management July 21, 2019 Patient complains of URI symptoms/coryza. She denies rupture membranes or bleeding she has occasional mild intermittent headache. She does feel baby moving and has occasional contractions Vital Signs Date Time Temp Pulse Resp B/P (MAP) Pulse Ox O2 Delivery O2 Flow Rate FiO2 07/21/19 07:50 36.2 92 18 124/86 (99) 100 Room Air 07/21/19 02:22 36.4 77 18 118/82 (94) 98 Room Air 07/20/19 23:10 36.5 86 18 127/77 (94) 98 Room Air 07/20/19 20:20 90 18 125/78 12/13/19 19:30 36.7 90 18 125/78 (94) 99 Room Air 07/20/19 15:30 37.3 93 18 115/66 (82) 99 Room Air 07/20/19 12:35 37.4 105 18 124/81 (95) 99 Room Air I & O 07/21/19 07:00 Intake Total 1000 ml Balance 1000 ml Vital signs are stable. Patient is afebrile. The abdomen is benign. Fundus is nontender Extremities show no clubbing or cyanosis. There is no Homans sign. monitor shows occasional somewhat irregular contractions and a normal heart rate pattern Assessment and plan hospital day number 5 now at 36 and 2/7 weeks' gestation with preeclampsia. Patient's blood pressures have been acceptable with her at relative bedrest. We will continue this management until 37 weeks gestation when the plan is for labor induction with Pitocin July 22, 2019 This patient is without complaint. Her upper respiratory/viral symptoms have improved somewhat. She denies rupture membranes or bleeding. She does continue to have an occasional contraction. She feels her baby moving. She denies headache, denies chest pain, denies shortness of breath. Vital Signs Date Time Temp Pulse Resp B/P (MAP) Pulse Ox O2 Delivery O2 Flow Rate FiO2 07/22/19 08:28 98 20 138/80 07/22/19 05:52 36.8 93 18 125/84 (98) Room Air 07/22/19 01:20 36.6 86 18 126/82 (97) Room Air 07/21/19 21:57 36.8 81 18 133/75 (94) 100 Room Air 07/21/19 16:12 37.2 94 18 116/77 (90) 100 Room Air 07/21/19 12:00 85 18 131/79 (96) 99 Room Air I & O 07/22/19 07:00 Intake Total 2665 ml Output Total 2450 ml Balance 215 ml Vital signs are stable. Patient is afebrile. Abdomen is gravid soft nontender nondistended. Extremities show no clubbing or cyanosis. There is no Homans sign. There is some pretibial pitting edema that is normal. Assessment and plan hospital day 6 currently at 36-3/7 weeks gestation patient is stable in regard to preeclampsia/blood pressure. We will continue current management with plan for induction of labor at the attainment at 37 weeks. July 23, 2019 This patient is without complaint. Vital Signs Date Time Temp Pulse Resp B/P (MAP) Pulse Ox O2 Delivery O2 Flow Rate FiO2 07/23/19 12:00 37.0 98 18 131/80 (97) 100 Room Air 07/23/19 09:55 37.2 101 18 137/80 (99) 100 Room Air 07/23/19 03:34 36.3 86 18 131/84 (100) Room Air 07/23/19 00:07 36.3 78 18 134/85 (101) Room Air 07/22/19 21:25 91 18 126/77 07/22/19 19:20 36.8 91 18 126/77 (93) Room Air 07/22/19 14:40 36.7 95 18 133/74 (93) Room Air 07/22/19 14:00 101 18 126/75 (92) Room Air I & O 07/23/19 07:00 Intake Total 500 ml Output Total 1700 ml Balance -1200 ml Blood pressures are stable/AFB Physical exam is unchanged and benign Assessment and plan hospital day 7 at 36+ weeks gestation with mild preeclampsia / plan is to continue management July 24, 2019 This patient is without complaint. She denies headache, denies shortness breath, denies nausea vomiting. Patient denies contractions. Vital Signs Date Time Temp Pulse Resp B/P (MAP) Pulse Ox O2 Delivery O2 Flow Rate FiO2 07/24/19 05:15 36.7 87 16 110/64 (79) 98 Room Air 07/24/19 01:11 36.5 94 18 113/63 (80) 98 Room Air 07/23/19 21:15 36.6 88 18 121/76 (91) 100 Room Air 07/23/19 16:17 91 18 140/75 07/23/19 16:00 37.0 91 18 140/75 (96) 100 Room Air 07/23/19 12:00 37.0 98 18 131/80 (97) 100 Room Air 07/23/19 09:55 37.2 101 18 137/80 (99) 100 Room Air I & O 07/24/19 07:00 Intake Total 2075 ml Output Total 1050 ml Balance 1025 ml Vital signs are stable. Patient is afebrile. Patient's blood pressures trending of a bit but still acceptable. The abdomen is benign. The fundus is nontender. Extremities show no clubbing cyanosis. There is no Homans sign. DTRs are 4/4 globally Assessment and plan hospital day number 8 the patient that most 36-5/7 weeks gestation. Plan is for induction of labor with Pitocin on when patient is 37 weeks providing her blood pressures and preeclampsia remains stable 07-25-19 Dictation down No c/o - stable Vital Signs Date Time Temp Pulse Resp B/P (MAP) Pulse Ox O2 Delivery O2 Flow Rate FiO2 07/25/19 04:13 36.9 73 18 108/71 (83) 94 Room Air 07/24/19 23:50 36.8 85 18 114/65 (81) Room Air 07/24/19 21:37 /0 07/24/19 21:10 83 18 121/75 (90) Room Air 07/24/19 16:00 36.9 98 18 138/87 (104) 99 Room Air 07/24/19 12:00 37.0 94 18 123/72 (89) 99 Room Air I & O 07/25/19 07:00 Intake Total 2050 ml Output Total 2250 ml Balance -200 ml VSS AFB Abd - benign Ext - benign VE - defer A/P As before - stable with Pre-E Dulce IOL in AM July 26, 2019 Patient is without complaint. She denies rupture membranes or bleeding. Her GBS culture was negative. Vital Signs Date Time Temp Pulse Resp B/P (MAP) Pulse Ox O2 Delivery O2 Flow Rate FiO2 07/26/19 00:06 36.3 83 18 114/55 (74) Room Air 07/25/19 21:22 36.7 90 18 125/72 (89) Room Air 07/25/19 16:00 37.0 95 18 122/75 (91) 99 Room Air 07/25/19 12:00 36.7 89 18 138/79 (98) 98 Room Air 07/25/19 11:25 84 18 136/81 I & O 07/26/19 07:00 Intake Total 2500 ml Output Total 1600 ml Balance 900 ml Blood pressures again have been mildly elevated but stable. Patient is afebrile The abdomen is benign/gravid Extremities show no clubbing cyanosis. There is some pretibial pitting edema that is fairly notable but not significantly changed There is no Homans sign Pelvic exam shows a cervix now 3 cm dilated 90 percent effaced vertex presentation -1 station with the cervix is mid plane soft. Amniotomy is performed with release of small amount of clear fluid heart rate pattern is normal and reassuring patient is on Pitocin and her contractions are 4-5 minutes apart Assessment and plan this is hospital day 2 and for patient now 37 weeks gestation with mild preeclampsia. She has been stable during the period of observation when she was admitted on the . Plan is continuing with inducti on on this date as the patient is now 37 weeks gestation. Anticipation is for a vaginal delivery although plans preparations are in place for if needed. MARLEN MEZA MD Jul 26, 2019 08:02
[2019-07-26] MEDS ORDERED: LACTATED RINGERS 1,000 ML IV ONE (08:31)
[2019-07-26] MEDS ORDERED: SUFENTA 0.6MCG/ML BUPIVA 0.125 100 ML ONE (08:31)
[2019-07-26] MEDS ORDERED: BUPIVACAINE 0.25% 30 ML (SENSORCAINE) VIAL ONE (09:59)
[2019-07-26] MEDS ORDERED: LIDOCAINE PF 2% 5 ML (XYLOCAINE) VIAL ONE (09:59)
[2019-07-26] MEDS ORDERED: fentaNYL INJECTION 100 MCG/2 ML AMP ONE (09:59)
[2019-07-26] MEDS ORDERED: LACTATED RINGERS 1,000 ML IV SCH (10:28)
[2019-07-26] MEDS ORDERED: diphenhydrAMINE 50 MG/ML INJ (BENADRYL) IV PRN (10:30)
[2019-07-26] MEDS ORDERED: EPIDURAL (SUFENTA 0.6MCG/ML BUPIVA 0.125%) 100 ML BAG EPI PRN (10:30)
[2019-07-26] MEDS ORDERED: NALOXONE 0.4 MG/ML 1 ML (NARCAN) VIAL IV PRN (10:30)
[2019-07-26] MEDS: guaiFENesin (MUCINEX) 600 MG TAB PO SCH (10:31)
[2019-07-26] MEDS: PSEUDOEPHEDRINE HCL 30 MG (SUDAFED) TAB PO PRN (10:31)
[2019-07-26] MEDS: ONDANSETRON 4 MG/2 ML (SDV) Z0FRAN IV PRN ×2 (11:52→15:54)
[2019-07-26] MEDS ORDERED: LIDOCAINE/EPI 2% 1:200,00 (XYLOCAINE) 10 ML VIAL ONE (14:49)
[2019-07-26] MEDS ORDERED: WITCH HAZEL(TUCKS) 40 EA JAR TOP PRN (17:15)
[2019-07-26] MEDS ORDERED: MEASLES,MUMPS,RUBELLA 1 EA INJ SQ ONE (17:15)
[2019-07-26] MEDS: IBUPROFEN 800 MG (MOTRIN) TAB PO SCH (17:30)
[2019-07-26] MEDS: BENZOCAINE/MENTHOL (DERMOPLAST) 56 ML CAN TP PRN (17:30)
[2019-07-27 01:08] VITALS: BP 104/71
[2019-07-27] MEDS: IBUPROFEN 800 MG (MOTRIN) TAB PO SCH ×4 (01:10→20:58)
[2019-07-27 06:00] VITALS: BP 126/84
[2019-07-27 08:40] VITALS: BP 149/77
[2019-07-27] MEDS: DOCUSATE SODIUM 100 MG (COLACE) CAP PO SCH ×2 (08:52→20:58)
[2019-07-27] MEDS: guaiFENesin (MUCINEX) 600 MG TAB PO SCH ×2 (08:53→20:58)
[2019-07-27 17:00] VITALS: BP 136/96
[2019-07-27 20:55] VITALS: BP 128/74
[2019-07-28 03:04] VITALS: BP 119/72
[2019-07-28] MEDS: IBUPROFEN 800 MG (MOTRIN) TAB PO SCH ×2 (03:05→08:26)
[2019-07-28] MEDS ORDERED: DOCU100C37 PO (08:22)
[2019-07-28] MEDS ORDERED: IBUP-1780 PO (08:22)
[2019-07-28] MEDS ORDERED: OXYC1TAB87 PO (08:22)
--- NOTE | 2019-07-28 08:23 | Discharge Instructions ---
Discharge Instructions Discharge Medications New, Converted or Re-Newed RX: RX on Chart Patient Instructions Return to The Hospital For: As directed Activity & Diet Discharge Diet: No Restrictions Activity as Tolerated: No Orders-Post D/C & Referrals Follow Up Appt: Call to make follow up appt. for patient in 4 weeks. Activity Per routine post vaginal delivery instructions. Please call in RX to patient pharmacy. Diet as tolerated Patient may shower or tub bathe as desired. MARLEN MEZA MD Jul 28, 2019 08:23
[2019-07-28] MEDS: BENZOCAINE/MENTHOL (DERMOPLAST) 56 ML CAN TP PRN (08:24)
--- NOTE | 2019-07-28 08:24 | Progress Note ---
Standard Progress Note Progress Notes/Assess & Plan Date Seen by a Provider: Jul 28, 2019 Time Seen by a Provider: 08:23 Progress/Assessment & Plan Patient is without complaint. She denies rupture membranes or bleeding. She denies headache. Patient does feel baby moving and has occasional contractions and pressure. Vital Signs Date Time Temp Pulse Resp B/P (MAP) Pulse Ox O2 Delivery O2 Flow Rate FiO2 07/18/19 06:13 36.2 92 18 128/85 (99) Room Air 07/18/19 00:59 36.8 85 18 102/64 (77) 99 07/17/19 21:00 37.1 101 18 128/80 (96) 100 Room Air 07/17/19 19:00 90 18 126/79 (95) Room Air 07/17/19 18:53 37.2 101 18 98 Room Air 07/17/19 17:50 37.2 101 18 140/88 (105) 98 Room Air Blood pressures are somewhat labile but decreased when she is at bed rest The abdomen is gravid soft nontender nondistended Extremities show no clubbing cyanosis. There is no Homans sign. Assessment and plan hospital day 2 at 35 and 6/7 weeks' gestation with preeclampsia. Plan is for inpatient monitoring with delivery for development of severe preeclampsia or at the attainment of 37 weeks gestation whichever comes first. Ob ultrasound is pending today July 19, 2019 Patient is without complaint. She is ambulating, voiding, tolerating oral intake Vital Signs Date Time Temp Pulse Resp B/P (MAP) Pulse Ox O2 Delivery O2 Flow Rate FiO2 07/19/19 04:40 36.9 89 16 126/60 (82) 97 07/19/19 00:36 89 18 136/87 07/19/19 00:36 37.0 96 18 136/87 (103) 100 Room Air 07/18/19 20:30 36.6 98 18 123/72 (89) 100 Room Air 07/18/19 16:30 36.7 85 18 115/70 (85) 100 Room Air 07/18/19 14:19 89 18 122/72 07/18/19 14:17 89 18 122/72 (89) 98 Room Air 07/18/19 12:00 36.6 80 18 126/84 (98) 100 Room Air 07/18/19 08:00 37.0 98 18 128/72 (90) 98 Room Air I & O 07/19/19 07:00 Intake Total 1000 ml Balance 1000 ml Vital signs are stable. Patient is afebrile. Blood pressures are acceptable. The abdomen is gravid soft and nontender Extremities show no clubbing or cyanosis Pelvic exam is deferred Assessment and plan hospital day 2 now at 36 weeks gestation with preeclampsia - to continue observation with blood pressure monitoring until 37 weeks gestation and then effect delivery July 20 2019 Patient without complaint. She is ambulating, tolerating oral intake well denies headache, denies shortness of breath, denies nausea vomiting, Vital Signs Date Time Temp Pulse Resp B/P (MAP) Pulse Ox O2 Delivery O2 Flow Rate FiO2 07/20/19 04:05 36.2 77 18 114/56 (75) 99 Room Air 07/20/19 02:45 99 16 123/67 07/19/19 23:06 36.4 99 18 123/67 (85) 96 Room Air 07/19/19 19:41 36.4 98 18 127/69 (88) 97 Room Air 07/19/19 15:19 36.7 109 18 125/76 (92) 100 Room Air 07/19/19 12:00 36.4 96 16 132/79 (96) 100 Room Air 07/19/19 08:20 87 16 136/82 07/19/19 08:20 100 Room Air I & O 07/20/19 07:00 Intake Total 3300 ml Balance 3300 ml Vital signs are stable. Patient is afebrile Abdomen is benign Streaming show no clubbing or cyanosis is no Homans sign Assessment and plan hospital day number 3 at 36-1/7 weeks gestation with preeclampsia plan is to continue current management July 21, 2019 Patient complains of URI symptoms/coryza. She denies rupture membranes or bleeding she has occasional mild intermittent headache. She does feel baby moving and has occasional contractions Vital Signs Date Time Temp Pulse Resp B/P (MAP) Pulse Ox O2 Delivery O2 Flow Rate FiO2 07/21/19 07:50 36.2 92 18 124/86 (99) 100 Room Air 07/21/19 02:22 36.4 77 18 118/82 (94) 98 Room Air 07/20/19 23:10 36.5 86 18 127/77 (94) 98 Room Air 07/20/19 20:20 90 18 125/78 12/13/19 19:30 36.7 90 18 125/78 (94) 99 Room Air 07/20/19 15:30 37.3 93 18 115/66 (82) 99 Room Air 07/20/19 12:35 37.4 105 18 124/81 (95) 99 Room Air I & O 07/21/19 07:00 Intake Total 1000 ml Balance 1000 ml Vital signs are stable. Patient is afebrile. The abdomen is benign. Fundus is nontender Extremities show no clubbing or cyanosis. There is no Homans sign. monitor shows occasional somewhat irregular contractions and a normal heart rate pattern Assessment and plan hospital day number 5 now at 36 and 2/7 weeks' gestation with preeclampsia. Patient's blood pressures have been acceptable with her at relative bedrest. We will continue this management until 37 weeks gestation when the plan is for labor induction with Pitocin July 22, 2019 This patient is without complaint. Her upper respiratory/viral symptoms have improved somewhat. She denies rupture membranes or bleeding. She does continue to have an occasional contraction. She feels her baby moving. She denies headache, denies chest pain, denies shortness of breath. Vital Signs Date Time Temp Pulse Resp B/P (MAP) Pulse Ox O2 Delivery O2 Flow Rate FiO2 07/22/19 08:28 98 20 138/80 07/22/19 05:52 36.8 93 18 125/84 (98) Room Air 07/22/19 01:20 36.6 86 18 126/82 (97) Room Air 07/21/19 21:57 36.8 81 18 133/75 (94) 100 Room Air 07/21/19 16:12 37.2 94 18 116/77 (90) 100 Room Air 07/21/19 12:00 85 18 131/79 (96) 99 Room Air I & O 07/22/19 07:00 Intake Total 2665 ml Output Total 2450 ml Balance 215 ml Vital signs are stable. Patient is afebrile. Abdomen is gravid soft nontender nondistended. Extremities show no clubbing or cyanosis. There is no Homans sign. There is some pretibial pitting edema that is normal. Assessment and plan hospital day 6 currently at 36-3/7 weeks gestation patient is stable in regard to preeclampsia/blood pressure. We will continue current management with plan for induction of labor at the attainment at 37 weeks. July 23, 2019 This patient is without complaint. Vital Signs Date Time Temp Pulse Resp B/P (MAP) Pulse Ox O2 Delivery O2 Flow Rate FiO2 07/23/19 12:00 37.0 98 18 131/80 (97) 100 Room Air 07/23/19 09:55 37.2 101 18 137/80 (99) 100 Room Air 07/23/19 03:34 36.3 86 18 131/84 (100) Room Air 07/23/19 00:07 36.3 78 18 134/85 (101) Room Air 07/22/19 21:25 91 18 126/77 07/22/19 19:20 36.8 91 18 126/77 (93) Room Air 07/22/19 14:40 36.7 95 18 133/74 (93) Room Air 07/22/19 14:00 101 18 126/75 (92) Room Air I & O 07/23/19 07:00 Intake Total 500 ml Output Total 1700 ml Balance -1200 ml Blood pressures are stable/AFB Physical exam is unchanged and benign Assessment and plan hospital day 7 at 36+ weeks gestation with mild preeclampsia / plan is to continue management July 24, 2019 This patient is without complaint. She denies headache, denies shortness breath, denies nausea vomiting. Patient denies contractions. Vital Signs Date Time Temp Pulse Resp B/P (MAP) Pulse Ox O2 Delivery O2 Flow Rate FiO2 07/24/19 05:15 36.7 87 16 110/64 (79) 98 Room Air 07/24/19 01:11 36.5 94 18 113/63 (80) 98 Room Air 07/23/19 21:15 36.6 88 18 121/76 (91) 100 Room Air 07/23/19 16:17 91 18 140/75 07/23/19 16:00 37.0 91 18 140/75 (96) 100 Room Air 07/23/19 12:00 37.0 98 18 131/80 (97) 100 Room Air 07/23/19 09:55 37.2 101 18 137/80 (99) 100 Room Air I & O 07/24/19 07:00 Intake Total 2075 ml Output Total 1050 ml Balance 1025 ml Vital signs are stable. Patient is afebrile. Patient's blood pressures trending of a bit but still acceptable. The abdomen is benign. The fundus is nontender. Extremities show no clubbing cyanosis. There is no Homans sign. DTRs are 4/4 globally Assessment and plan hospital day number 8 the patient that most 36-5/7 weeks gestation. Plan is for induction of labor with Pitocin on when patient is 37 weeks providing her blood pressures and preeclampsia remains stable 07-25-19 Dictation down No c/o - stable Vital Signs Date Time Temp Pulse Resp B/P (MAP) Pulse Ox O2 Delivery O2 Flow Rate FiO2 07/25/19 04:13 36.9 73 18 108/71 (83) 94 Room Air 07/24/19 23:50 36.8 85 18 114/65 (81) Room Air 07/24/19 21:37 /0 07/24/19 21:10 83 18 121/75 (90) Room Air 07/24/19 16:00 36.9 98 18 138/87 (104) 99 Room Air 07/24/19 12:00 37.0 94 18 123/72 (89) 99 Room Air I & O 07/25/19 07:00 Intake Total 2050 ml Output Total 2250 ml Balance -200 ml VSS AFB Abd - benign Ext - benign VE - defer A/P As before - stable with Pre-E Dulce IOL in AM July 26, 2019 Patient is without complaint. She denies rupture membranes or bleeding. Her GBS culture was negative. Vital Signs Date Time Temp Pulse Resp B/P (MAP) Pulse Ox O2 Delivery O2 Flow Rate FiO2 07/26/19 00:06 36.3 83 18 114/55 (74) Room Air 07/25/19 21:22 36.7 90 18 125/72 (89) Room Air 07/25/19 16:00 37.0 95 18 122/75 (91) 99 Room Air 07/25/19 12:00 36.7 89 18 138/79 (98) 98 Room Air 07/25/19 11:25 84 18 136/81 I & O 07/26/19 07:00 Intake Total 2500 ml Output Total 1600 ml Balance 900 ml Blood pressures again have been mildly elevated but stable. Patient is afebrile The abdomen is benign/gravid Extremities show no clubbing cyanosis. There is some pretibial pitting edema that is fairly notable but not significantly changed There is no Homans sign Pelvic exam shows a cervix now 3 cm dilated 90 percent effaced vertex presentation -1 station with the cervix is mid plane soft. Amniotomy is performed with release of small amount of clear fluid heart rate pattern is normal and reassuring patient is on Pitocin and her contractions are 4-5 minutes apart Assessment and plan this is hospital day 10 and for patient now 37 weeks gestation with mild preeclampsia. She has been stable during the period of observation when she was admitted on the . Plan is continuing with induct ion on this date as the patient is now 37 weeks gestation. Anticipation is for a vaginal delivery although plans preparations are in place for if needed. July 27, 2019 Patient without complaint. She is ambulating, voiding, tolerating oral intake well has good pain control. Vital Signs Date Time Temp Pulse Resp B/P (MAP) Pulse Ox O2 Delivery O2 Flow Rate FiO2 07/27/19 06:00 36.4 103 18 126/84 (98) 100 Room Air 07/27/19 01:08 36.6 79 18 104/71 (82) 98 Room Air 07/26/19 19:30 36.8 92 18 131/89 (103) 98 Room Air 07/26/19 17:00 95 18 111/64 (80) Room Air 07/26/19 16:45 90 18 120/71 (87) Room Air 07/26/19 16:30 101 18 120/64 (82) Room Air 07/26/19 16:15 104 18 120/66 (84) Room Air 07/26/19 16:00 106 18 116/60 (78) Room Air 07/26/19 15:45 102 18 116/57 (76) Room Air 07/26/19 15:30 116 18 139/64 (89) Room Air 07/26/19 15:15 144 18 172/78 (109) Room Air 07/26/19 15:00 118 18 185/68 (107) Room Air 07/26/19 14:45 92 18 135/84 (101) Room Air 07/26/19 14:42 37.3 07/26/19 14:30 97 18 144/75 (98) 100 Room Air 07/26/19 14:15 91 18 136/82 (100) 100 Room Air 07/26/19 14:00 81 18 130/84 (99) 100 Room Air 07/26/19 13:45 73 18 124/77 (93) 100 Room Air 07/26/19 13:30 72 18 118/70 (86) 100 Room Air 07/26/19 13:15 70 18 130/70 (90) 100 Room Air 07/26/19 13:10 36.4 07/26/19 13:00 71 18 130/81 (97) 100 Room Air 07/26/19 12:45 69 18 119/73 (88) 100 Room Air 07/26/19 12:30 74 18 123/77 (92) 100 Room Air 07/26/19 12:15 80 18 126/87 (100) 100 Room Air 07/26/19 12:00 65 18 126/74 (91) 100 Room Air 07/26/19 11:45 75 18 122/78 (93) 99 Room Air 07/26/19 11:30 77 18 129/76 (93) 100 Room Air 07/26/19 11:15 76 18 119/69 (86) 100 Room Air 07/26/19 11:00 78 18 125/66 (85) 100 Room Air 07/26/19 10:45 80 18 117/75 (89) 100 Room Air 07/26/19 10:40 73 18 124/62 (82) 99 Room Air 07/26/19 10:30 88 18 99 Room Air 07/26/19 10:25 95 18 128/74 (92) 100 Room Air 07/26/19 10:20 100 18 135/97 (110) 100 Room Air 07/26/19 10:15 101 18 149/87 (107) Room Air 07/26/19 10:10 99 18 165/110 (128) 91 Room Air 07/26/19 10:05 97 18 142/87 (105) 100 Room Air 07/26/19 10:00 37.0 96 18 141/88 (105) 100 Room Air 07/26/19 09:45 93 18 141/84 (103) Room Air 07/26/19 09:30 87 18 130/83 (99) Room Air 07/26/19 09:15 87 18 135/81 (99) Room Air 07/26/19 09:00 100 18 135/85 (102) Room Air 07/26/19 08:45 89 18 124/76 (92) Room Air 07/26/19 08:30 90 18 119/72 (88) Room Air 07/26/19 08:15 86 18 137/84 (101) Room Air 07/26/19 08:00 82 18 133/75 (94) Room Air 07/26/19 07:45 93 18 137/94 (108) Room Air Vital signs are stable. Patient is afebrile. Blood pressures have been somewhat labile but inconsistent and generally acceptable. Abdomen is benign. Fundus is firm below the umbilicus and nontender. Extremities show no clubbing cyanosis. There is no Homans sign. There is some pretibial pitting edema that is normal. Assessment and plan day number 1 status post term spontaneous vaginal delivery at 37 weeks patient with preeclampsia. Her blood pressures are. Plan is for continued convalescence care can consider discharge home marcus schrader July 28, 2019 See discharge summary Final Diagnosis 37 week spontaneous vaginal delivery MARLEN MEZA MD Jul 28, 2019 08:24
[2019-07-28] MEDS: DOCUSATE SODIUM 100 MG (COLACE) CAP PO SCH (08:25)
--- NOTE | 2019-07-28 08:42 | Discharge Summary ---
Discharge Summary 37 week spontaneous vaginal delivery This patient is a 29-year-old 1 white female who was seen in my clinic on July 17, 2019 and found to have proteinuria. The urine protein creatinine ratio was over 0.4. One week prior it had been 0.24 this patient's blood pressures have been trending upwards for over 140/90 in clinic. Patient was developing mild anasarca. She was having occasional contractions. She was dilated 2 cm and thinned out the 73 percent been some concern for labor. Her physical exam included brisk reflexes at 4 over 4 globally. She was sent to labor and delivery for admission for frequent blood pressure monitoring with the plan for delivery at that point she developed severe preeclampsia signs or symptoms or at that time and 37 weeks gestation. On admission the patient's blood pressure was in the range of 140/88. NST showed occasional contractions but she demonstrated no cervical change heart rate pattern was reassuring On July 18, 2019 - hospital day 2 patient continued is essentially at bed rest her blood pressure was stable in the range of 140/88. On July 19, 2019 - hospital day 3 - patient remains stable her blood pressures had improved somewhat to the 130s over 80s with her at bed rest. Her DTRs remained elevated at 3+ to 4 over 4 globally On July 20, 2019 - hospital day 4 - patient was essentially unchanged- blood pressures were a bit improved with bed rest - DTRs remained at 3+ - 4 /4 On July 21, 2019 - hospital day 5 patient again was stable she complained of a headache that she also had upper respiratory symptoms or coryza. Her blood pressures remained acceptable with her at bed rest she was allowed some ambulation. Management and plan continued to be bed rest to help to maintain blood pressures at an acceptable level with frequent blood pressure monitoring and surveillance. On July 22, 2019 - hospital day 6 - blood pressures and had been stable with starting to trend upward a bit when patient was allowed to ambulate, her pressures remain essentially acceptable 130 over 80s with her at bed rest On July 23, 2019 - hospital day 7 - patient again was pretty much at bed rest she remains stable with a blood pressures in the 130s over 80s On July 24, 2019 - hospital day 8 - patient's blood pressures began to creep up in spite of bed rest she was having more frequent contractions physical exam was stable although her DTRs were fairly brisk 44 globally On July 25, 2019- hospital day 9 - patient again remained stable blood pressure was in the high 130s over high 80s, which were acceptable to continue management until the next morning when she was 37 weeks and plan was for induction. On July 26, 2019 now hospital day 10 patient was transferred to labor and delivery for labor induction with Pitocin. GBS culture had been reported negative by that time. She did labor adequately with Pitocin and subsequently had a spontaneous vaginal delivery without event. On July 27, 2019 day number 1 patient was doing well ambulating, voiding, tolerating oral intake and had good pain control. Now on July 28, 2019 patient is again ambulating, voiding, tolerating intake well has good pain control she denies chest pain, denies shortness breath, denies nausea vomiting, denies headache. Her DTRs are decreased some and 2+ to 3 over 4. Plan is for discharge home with strict return to clinic precautions for preeclampsia. Principal diagnoses this hospitalization is 37 week spontaneous vaginal delivery Secondary diagnoses are mild preeclampsia, 36 weeks' gestation on admission, 37 weeks' gestation at delivery Operation procedures include IV fluids, twice daily NST, epidural analgesia, Pitocin induction of labor, denies vaginal delivery Patient was given appropriate discharge instructions including strict precautions return to clinic for any signs symptoms and indications of recurrent preeclampsia. Discharge medications are Percocet and Motrin and Colace patient is continue her vitamins. Clinical Quality Measures DVT/VTE Risk/Contraindication: Risk Factor Score Per Nursin RFS Level Per Nursing on Admit: 3=High MARLEN MEZA MD Jul 28, 2019 08:42
[2019-07-28 08:55] VITALS: BP 126/83
== END 2019-07-28 14:05 | disposition home or self-care (01) | DRG 807 ==
LOC: LDRP 17:37
PROVIDERS: ADMIT Obstetrics & Gynecology; ATTEND Obstetrics & Gynecology
PROC: 10E0XZZ Delivery of Products of Conception, External Approach (ICD-10-PCS; principal; 2019-07-26)
DX: O14.04 Mild to moderate pre-eclampsia, complicating childbirth (principal); Z37.0 Single live birth; Z3A.37 37 weeks gestation of pregnancy; Z23 Encounter for immunization
CPT/HCPCS: 36415; 76805; 80053; 82570; 83615; 84156; 85007; 85025; 85027; 86850; 86900; 86901; 90707

== ENCOUNTER → 2019-07-17 | Outpatient (CLI) | payer MEDICAID ==
[~2019-07-17] MED LIST changes: -DOCU100C37 PO; -IBUP-1780 PO; -OXYC1TAB87 PO
== END ==
LOC: LABNPT 16:09
PROVIDERS: ATTEND Obstetrics & Gynecology
DX: O14.03 Mild to moderate pre-eclampsia, third trimester (principal)
CPT/HCPCS: 82570; 84156